=== PATIENT | female | born 1935 | race Caucasian/White ===

== ENCOUNTER → 2017-10-29 10:36 | Outpatient (CLI) | payer MEDICARE, OTHER, SELFPAY ==
--- NOTE | 2017-10-29 | DI.ECHO.S_ITS ---
[place] +---------+ [facility] +---------+ : : [address] : : : : [id number] : : : : Phone: [phone]+ Echocardiogram Report + + :Name: KYLE GALVAN Study Date: 10/29/2017 Height: 61 in : :[facility] Weight: 169 lb : : Gender: Female BSA: 1.8 m2 : :: 1935 Age: 82 yrs BP: 100/60 mmHg: :Reason For Study: Atrial fibrillation : :Ordering Physician: Vitor Espinosa : :[place] Performed By: Sue Mcege : :Referring: Dr. Salvatore Ornelas : + + Interpretation Summary 1) Normal left ventricular thickness and size with low normal function (EF 50- 55%). 2) Basal to mid inferior wall is akinetic, basal inferolateral wall is hypokinetic, and basal to mid anterolateral wall is hypokinetic. 3) Grossly normal right ventricular size and function. There is a pacemaker lead in the right ventricle. 4) The left atrium is severely dilated. 5) There is mild to moderate mitral regurgitation. 6) There is mild aortic stenosis. There is mild to moderate aortic regurgitation. 7) The right ventricular systolic pressure is estimated at 37 mmHg assuming a right atrial pressure of 3 mm Hg. 8) No prior TTE available for comparison. Procedure: A two-dimensional transthoracic echocardiogram with color flow and Doppler was performed. The study quality was technically adequate. Comparison is made with the echocardiogram of 10-27-12. The patient has a paced rhythm. Left Ventricle: The left ventricle is normal in size. There is normal left ventricular wall thickness. The ejection fraction is estimated to be 50-55%. Basal to mid inferior wall is akinetic, basal inferolateral wall is hypokinetic, and basal to mid anterolateral wall is hypokinetic. Diastolic function could not be accurately assessed due to paced rhythm. Right Ventricle: The right ventricle grossly appears normal in size with probable normal systolic function. There is a pacemaker lead in the right ventricle. Atria: The left atrium is severely dilated. The right atrium is mildly dilated. The interatrial septum is intact with no evidence for an atrial septal defect. Mitral Valve: The mitral valve is grossly normal. There is mild to moderate mitral regurgitation. Aortic Valve: The aortic valve is trileaflet. The calculated aortic valve area is 1.4 cm2. The aortic valve area is 1.5 centimeters squared by planimetry. The peak aortic velocity is 2.1 m/sec. The aortic valve mean gradient is 9 mmHg. Severity ratio is 0.43. There is mild aortic stenosis. There is mild to moderate aortic regurgitation. Tricuspid Valve: The tricuspid valve is normal in structure and function. There is mild tricuspid regurgitation. The right ventricular systolic pressure is estimated at 37 mmHg assuming a right atrial pressure of 3 mm Hg. Pulmonic Valve: The pulmonic valve is not well visualized. Great Vessels: The aortic root is normal size. The ascending aorta is mildly enlarged. The aortic arch could not be visualized. The IVC is of normal diameter and collapses greater than 50% with a sniff. This suggests a low right atrial pressure of 3 mm Hg. Pericardium/ Pleura There is no pericardial effusion. There is no pleural effusion. MMode/2D Measurements & Calculations LVIDd: 5.3 cm LVOT diam: 2.1 cm LVIDs: 3.6 cm Ao root diam: 3.6 cm FS: 31.7 % Aortic Jxn: 3.0 cm EPSS: 1.6 cm asc Aorta Diam: 3.8 cm IVSd: 1.0 cm LVPWd: 0.93 cm LV medley. diameter/BSA (cm/m^2): 3.0 LV sys. diameter/BSA (cm/m^2): 2.1 LA dimension: 5.5 cm RA long axis: 6.4 cm LA A2 area: 36.4 cm2 RA area: 22.7 cm2 LA A4 area: 33.8 cm2 RA vol: 68.2 ml LA length (vol): 6.7 cm RA : 38.8 ml/m2 LA vol: 155.1 ml IVC diam: 2.0 cm LA vol index: 88.2 ml/m2 RVDd major: 4.9 cm RVD1 (basal): 3.5 cm RVD2 (mid): 2.6 cm NICOLE (plan): 1.5 cm2 Doppler Measurements & Calculations Ao V2 max: 208.2 cm/sec LVOT Max Shaka: 83.0 cm/sec Ao V2 mean: 141.2 cm/sec LV V1 max P.8 mmHg Ao max P.3 mmHg LV V1 VTI: 19.6 cm Ao mean P.9 mmHg NICOLE(I,D): 1.5 cm2 Ao V2 VTI: 45.4 cm NICOLE(V,D): 1.4 cm2 sev ratio: 0.43 NICOLE indexed to BSA (cm^2/m^2): 0.84 AI P1/2t: 551.0 msec AI dec slope: 209.8 cm/sec2 MV E max shaka: 96.9 cm/sec TR max shaka: 289.9 cm/sec MV A max shaka: 35.3 cm/sec TR max P.6 mmHg MV E/A: 2.7 PA V2 max: 83.9 cm/sec Med Peak E' Shaka: 7.7 cm/sec PA V2 mean: 46.6 cm/sec E/E' med: 12.6 PA mean P.1 mmHg Lat Peak E' Shaka: 6.8 cm/sec PA Accel Time: 0.09 sec E/E' lat: 14.2 E/e' average: 13.4 MV dec time: 0.16 sec MV P1/2t: 47.0 msec MR ERO: 0.22 cm2 MV P1/2t max shaka: 100.0 cm/sec MR flow rate: 120.9 cm3/sec MVA(P1/2t): 4.7 cm2 MR PISA radius: 0.71 cm Reading Physician:12:22 PM
== END ==
PROVIDERS: Family Provider Family Medicine; PCP Internal Medicine; Visit Provider Internal Medicine Cardiovascular Disease
DX: I08.3 Combined rheumatic disorders of mitral, aortic and tricuspid valves (principal); I48.91 Unspecified atrial fibrillation
CPT/HCPCS: 93306

== ENCOUNTER → 2017-11-13 14:30 | Outpatient (CLI) | payer MEDICARE, OTHER, SELFPAY ==
[2017-11-13 17:03] LABS: Add Manual Diff / Slide Review NO; Basophils Percent Auto 0.6 % (0-2); Eosinophils Percent Auto 2.6 % (2-4); Hematocrit 42.3 % (36-46); Hemoglobin 14.2 g/dL (12.0-16.0); Mean Corpuscular HGB Conc 33.5 % (30-36); Mean Corpuscular Hemoglobin 32.1 PG (26-34); Mean Corpuscular Volume 95.9 fL (80-100); Monocytes Percent Auto 13.7 % (3-14); Neutrophils Absolute Auto 3600 /uL (3000-5900); Neutrophils Percent Auto 51.1 % (50-75); Platelet Count 223 X10^3/uL (150-400); Red Blood Cell Count 4.42 X10^6/uL (4.0-5.2); Red Cell Distribution Width 13.8 % (11.6-14.8)
[2017-11-13 17:21] LABS: Alanine Aminotransferase 28 IU/L (9-52); Albumin 4.1 g/dL (3.5-5.0); Albumin Globulin Ratio 1.3 (1.0-2.8); Alkaline Phosphatase 61 U/L (38-126); Aspartate Aminotransferase 30 IU/L (14-36); BUN Creatinine Ratio 18.6 (6-22); Bilirubin Total 0.6 mg/dL (0.2-1.3); Blood Urea Nitrogen 13 mg/dL (7-17); Calcium 9.2 mg/dL (8.4-10.2); Carbon Dioxide 28 mmol/L (22-32); Chloride 104 mmol/L (98-107); Creatine Kinase 43 U/L (30-135); Estimated Glomerular Filt Rate > 60.0 mL/min (>60); Globulin 3.1 g/dL (1.7-4.1); Glucose 97 mg/dL (80-110); HEMOLYSIS 20 (0-50); Potassium 4.2 mmol/L (3.4-5.1); Sodium 142 mmol/L (137-145); Total Protein 7.2 g/dL (6.3-8.2)
[2017-11-13 17:36] LABS: Free T4, Direct Thyroxine 1.92 ng/dL (0.78-2.19)
[2017-11-13 17:50] LABS: Thyroid Stimulating Hormone 0.42 uIU/mL (0.47-4.68)
== END ==
PROVIDERS: PCP Internal Medicine; Visit Provider Internal Medicine
DX: E78.00 Pure hypercholesterolemia, unspecified (principal); G47.62 Sleep related leg cramps; I25.10 Atherosclerotic heart disease of native coronary artery without angina pectoris; I10 Essential (primary) hypertension; E03.9 Hypothyroidism, unspecified; E78.5 Hyperlipidemia, unspecified; I48.2 Chronic atrial fibrillation
CPT/HCPCS: 80053; 82550; 83735; 84439; 84443; 85025

== ENCOUNTER → 2018-01-26 13:05 | Outpatient (CLI) | payer MEDICARE, OTHER, SELFPAY ==
[2018-01-26 14:58] LABS: TSH w/ Reflex to FT4 1.16 uIU/mL (0.47-4.68)
== END ==
PROVIDERS: PCP Internal Medicine; Visit Provider Internal Medicine
DX: E03.9 Hypothyroidism, unspecified (principal)
CPT/HCPCS: 36415; 84443

== ENCOUNTER → 2018-03-12 08:59 | Outpatient (CLI) | payer MEDICARE, OTHER, SELFPAY ==
[2018-03-12 10:19] LABS: Free T4, Direct Thyroxine 1.26 ng/dL (0.78-2.19)
[2018-03-12 10:32] LABS: Thyroid Stimulating Hormone 2.44 uIU/mL (0.47-4.68)
[2018-03-15 09:52] LABS: Alanine Aminotransferase 31 IU/L (9-52); Albumin 4.2 g/dL (3.5-5.0); Albumin Globulin Ratio 1.5 (1.0-2.8); Alkaline Phosphatase 64 U/L (38-126); Aspartate Aminotransferase 28 IU/L (14-36); Bilirubin Total 0.7 mg/dL (0.2-1.3); Blood Urea Nitrogen 20 mg/dL (7-17); Calcium 9.8 mg/dL (8.4-10.2); Carbon Dioxide 26 mmol/L (22-32); Chloride 102 mmol/L (98-107); Estimated Glomerular Filt Rate > 60.0 mL/min (>60); Globulin 2.8 g/dL (1.7-4.1); Glucose 103 mg/dL (80-110); HEMOLYSIS < 15 (0-50); Potassium 5.2 mmol/L (3.4-5.1); Sodium 138 mmol/L (137-145)
== END ==
PROVIDERS: Internal Medicine Cardiovascular Disease; PCP Internal Medicine; Visit Provider Internal Medicine
DX: E03.9 Hypothyroidism, unspecified (principal)
CPT/HCPCS: 36415; 80053; 84439; 84443

== ENCOUNTER → 2018-03-18 11:13 | Outpatient (CLI) | payer MEDICARE, OTHER, SELFPAY ==
[2018-03-18 12:27] LABS: BUN Creatinine Ratio 23.8 (6-22); Blood Urea Nitrogen 19 mg/dL (7-17); Calcium 9.6 mg/dL (8.4-10.2); Carbon Dioxide 27 mmol/L (22-32); Chloride 102 mmol/L (98-107); Estimated Glomerular Filt Rate > 60.0 mL/min (>60); Glucose 94 mg/dL (80-110); HEMOLYSIS < 15 (0-50); Potassium 5.1 mmol/L (3.4-5.1); Sodium 138 mmol/L (137-145)
== END ==
PROVIDERS: PCP Internal Medicine; Visit Provider Internal Medicine Cardiovascular Disease
DX: I48.2 Chronic atrial fibrillation (principal)
CPT/HCPCS: 36415; 80048

== ENCOUNTER → 2018-07-19 14:16 | Outpatient (CLI) | payer MEDICARE, OTHER, SELFPAY ==
--- NOTE | 2018-07-19 14:32 | DI.RAD.S_ITS ---
PROCEDURE: XR CERVICAL SPINE 4V OR 5V INDICATIONS: chronic neck pain TECHNIQUE: 5 views of the cervical spine acquired. COMPARISON: [facility], , SPINE CERVICAL MIN 4VW, 01/09/2016, 10:05. [facility], [place], CERVICAL SPINE 2 OR 3 VIEWS, 07/05/2012, 16:57. FINDINGS: Bones: No fractures or dislocations to the T1 level. Oblique images demonstrate significant bilateral mid cervical bony foraminal stenoses related to severe degenerative disc disease from C3-C6. On the right the foraminal stenosis is most pronounced at C3-4 and C4-5. On the left is most pronounced from C3-4 through C6-7. Soft tissues: No prevertebral soft tissue swelling. 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 This has not appreciably worsened considering slight differences in technique from the comparison study in January of 2016. Dictated by: Jono Marie M.D. on 07/19/2018 at 15:16 Approved by: Jono Marie M.D. on 07/19/2018 at 15:18
--- NOTE | 2018-07-19 14:32 | DI.RAD.S_ITS ---
PROCEDURE: XR LUMBAR SPINE MIN 4V INDICATIONS: chronic back pain TECHNIQUE: 5 views of the lumbar spine were acquired, including both obliques. COMPARISON: [facility], , L-SPINE 2-3 VIEWS, 11/16/2015, 14:37. [facility], [place], L-SPINE 2-3 VIEWS, 01/18/2013, 11:09. FINDINGS: Bones: 5 nonrib-bearing vertebrae are present. There is stable appearing mildly abnormal bony alignment, with convex rightward scoliosis centered at L2.. No vertebral body compression fractures. No suspicious bony lesions. Previously present moderate degenerative disc disease and moderately severe facet osteoarthritis along the lumbosacral spine has not worsened. Soft tissues: Overlying bowel gas pattern is normal. No suspicious soft tissue calcifications. Oblique images: No pars defects. IMPRESSION: Mild convex rightward scoliosis, stable appearing moderate degenerative disc disease and moderately severe bilateral facet osteoarthritis along the lumbosacral spine with reference to the comparison study from January 2013. Dictated by: Jono Marie M.D. on 07/19/2018 at 15:12 Approved by: Jono Marie M.D. on 07/19/2018 at 15:14
--- NOTE | 2018-07-19 14:32 | DI.RAD.S_ITS ---
PROCEDURE: XR SHOULDER RT MIN 2V INDICATIONS: pain TECHNIQUE: 3 views of the shoulder were acquired. COMPARISON: None. FINDINGS: Bones: No fractures or dislocations. No suspicious bony lesions. Visualized ribs appear intact. Moderately severe a.c. joint osteoarthritis. Soft tissues: No suspicious soft tissue calcifications. IMPRESSION: No trauma found. Moderately severe a.c. joint osteoarthritis. Dictated by: Jono Marie M.D. on 07/19/2018 at 15:11 Approved by: Jono Marie M.D. on 07/19/2018 at 15:12
== END ==
PROVIDERS: Family Provider Family Medicine; PCP Internal Medicine; Visit Provider Physical Medicine & Rehabilitation
DX: M50.11 Cervical disc disorder with radiculopathy, high cervical region (principal); M48.02 Spinal stenosis, cervical region; M47.22 Other spondylosis with radiculopathy, cervical region; M25.511 Pain in right shoulder; M19.011 Primary osteoarthritis, right shoulder; M51.37 Other intervertebral disc degeneration, lumbosacral region; M47.817 Spondylosis without myelopathy or radiculopathy, lumbosacral region; M41.86 Other forms of scoliosis, lumbar region; G89.29 Other chronic pain
CPT/HCPCS: 72050; 72110; 73030; 99214

== ENCOUNTER → 2018-07-22 09:51 | Outpatient (CLI) | payer MEDICARE, OTHER, SELFPAY ==
--- NOTE | 2018-07-22 10:22 | DI.CT.S_ITS ---
PROCEDURE: CT CERVICAL SPINE WO CON INDICATIONS: lower neck pains TECHNIQUE: Noncontrast 3 mm thick sections acquired from the skull base to the T4 level. Sagittal and coronal reformats were then constructed. For radiation dose reduction, the following was used: automated exposure control, adjustment of mA and/or kV according to patient size. COMPARISON: None. FINDINGS: Image quality: Excellent. Bones: No fractures. Trace, approximately 2-3 mm of C3-C4 anterolisthesis. There is mild reversal of normal cervical spine curvature. Visualized superior ribs are intact. C2-C3: Disc height is normal. Mild, diffuse disc bulge. Mild bilateral facet hypertrophy. No central stenosis. No neural foraminal narrowing. No neural impingement. C3-C4: Loss of disc height. Mild, diffuse disc bulge. Moderate bilateral facet hypertrophy. Mild narrowing of the central canal. Severe bilateral neural foraminal narrowing with compression of the exiting C4 nerve roots. C4-C5: Loss of disc height. Minimal, diffuse disc bulge. Mild bilateral facet hypertrophy. Mild bilateral uncovertebral joint hypertrophy. No central stenosis Severe bilateral neural foraminal narrowing with compression of the exiting C5 nerve roots. C5-C6: Loss of disc height. Mild, diffuse disc bulge. Mild left facet and uncovertebral joint hypertrophy. Mild narrowing of the central canal. Mild right and severe left neural foraminal narrowing with compression of the exiting left C6 nerve root. C6-C7: Loss of disc height. Mild, diffuse disc bulge. Mild bilateral uncovertebral joint hypertrophy. Mild narrowing of the central canal. Moderate right and severe left neural foraminal narrowing with compression of the exiting left C7 nerve root. C7-T1: Loss of disc height. Minimal, diffuse disc bulge. Mild bilateral facet hypertrophy. No central stenosis. Moderate bilateral neural foraminal narrowing. No neural impingement. Soft tissues: Prevertebral soft tissues are normal in thickness. No paravertebral hematomas. No apical pneumothoraces. IMPRESSION: 1. Mild C3-C4 degenerative spondylolisthesis. 2. Multilevel degenerative disease. 3. Multilevel facet arthropathy and uncovertebral joint hypertrophy. 4. Mild C3-C4, C5-C6 and C6 on C7 central canal narrowing. 5. Severe bilateral C3-C4 and C4-C5 neuroforaminal narrowing. Moderate right and severe left C6-C7 neural foraminal narrowing. Mild right and severe left C5-C6 neural foraminal narrowing. Moderate bilateral C7-T1 neural foraminal narrowing. 6. Compression of the exiting bilateral C4 nerve roots, the exiting bilateral C5 nerve roots, the exiting left C6 nerve root and the exiting left C7 nerve root secondary to neural foraminal narrowing. Please correlate clinically. Dictated by: Alice Pierce MD, PhD on 07/22/2018 at 11:45 Approved by: Alice Pierce MD, PhD on 07/22/2018 at 13:38
--- NOTE | 2018-07-22 10:22 | DI.CT.S_ITS ---
PROCEDURE: CT LUMBAR SPINE WO CON INDICATIONS: LOWER BACK PAIN WITH BILATERAL SCIATICA TECHNIQUE: Noncontrast 3 mm thick sections acquired from the T12 level to the sacrum. Sagittal and coronal reformats were constructed. For radiation dose reduction, the following was used: automated exposure control. COMPARISON: [facility], CT, L-SPINE WITHOUT CONTRAST, 01/04/2016, 8:44. FINDINGS: Image quality: Excellent. Bones: There is trace retrolisthesis of L1 on L2, L3 on L4, trace anterolisthesis of L4 on L5, L5 on S1. No acute vertebral body compression fractures. No suspicious lytic or blastic bony lesions. Mild disc bulges are present at L1-L2, L2-L3, L3-4, L4-5 including a right lateral disc osteophyte complex, L5-S1. There is moderate to severe spinal stenosis at L2-3, severe L3-4, L4-5. There is flattening of the canal identified at L3-4 and L4-5. Appearance is overall unchanged compared to prior exam. Mild bilateral foraminal narrowing is present at L1-L2, mild left and moderate right L2-L3, moderate to severe right and mild left L3-4, severe right and mild left L4-5, severe left and mild to moderate right L5-S1. Nerve root flattening is noted on the right at L3-4, L4-5 and left L5-S1. Multilevel facet and ligamentum flavum hypertrophy are present. Minimal interval progression of foraminal narrowing is noted at L4-5 and L5-S1. Soft tissues: No retroperitoneal hematomas. Visualized aorta is normal in caliber. There is an unchanged right adrenal nodule. IMPRESSION: 1. Multilevel spinal stenosis secondary to disc bulges with contributing effect of facet/ligamentum flavum arthropathy. This is most notable at L3-4 and L4-5. 2. Multilevel foraminal narrowing most severe at L3-4, L4-5 and L5-S1 with areas of nerve root flattening. Mild interval progression is noted as above. Foraminal narrowing is predominantly secondary to facet arthropathy. 3. Unchanged right adrenal nodule. Dictated by: Renetta Pugh M.D. on 07/22/2018 at 15:56 Approved by: Renetta Pugh M.D. on 07/22/2018 at 16:13
== END ==
PROVIDERS: PCP Internal Medicine; Visit Provider Physical Medicine & Rehabilitation
DX: M54.5 Low back pain (principal); M50.11 Cervical disc disorder with radiculopathy, high cervical region; M48.02 Spinal stenosis, cervical region; M47.22 Other spondylosis with radiculopathy, cervical region; M43.12 Spondylolisthesis, cervical region; M48.061 Spinal stenosis, lumbar region without neurogenic claudication; M48.07 Spinal stenosis, lumbosacral region; M47.816 Spondylosis without myelopathy or radiculopathy, lumbar region; M47.817 Spondylosis without myelopathy or radiculopathy, lumbosacral region; E27.9 Disorder of adrenal gland, unspecified
CPT/HCPCS: 72125; 72131

== ENCOUNTER → 2018-07-23 09:11 | Outpatient (CLI) | payer MEDICARE, OTHER, SELFPAY ==
[2018-07-23 11:03] LABS: Cholesterol 166 mg/dL (140-199); HDL Cholesterol 74 mg/dL (40-60); LDL Cholesterol Calculated 77 mg/dL (<100); Triglycerides 77 mg/dL (35-150)
== END ==
PROVIDERS: Family Provider Internal Medicine; PCP Internal Medicine; Visit Provider Internal Medicine Cardiovascular Disease
DX: E78.5 Hyperlipidemia, unspecified (principal)
CPT/HCPCS: 36415; 80061

== ENCOUNTER 2018-10-01 13:45 | Outpatient (RCR) | payer MEDICARE, OTHER, SELFPAY ==
--- NOTE | 2018-08-25 12:33 | PT.OIE ---
Current Diagnoses Other spondylosis with radiculopathy, cervical region (08/24/18) Spinal stenosis, cervical region (08/24/18) Past Medical History (Last Reviewed 07/19/18 @ 14:05 by Marc Holt DO) Chronic atrial fibrillation (Chronic 1995) Hypothyroidism (Chronic 04/23/12) GERD (gastroesophageal reflux disease) (Chronic 10/18/10) CAD (coronary artery disease) (Chronic 1993) Sleep apnea (Chronic) Osteoarthritis (Chronic 1979) Chronic headaches (Chronic 1947) Tinnitus (Chronic 2004) Chronic back pain (Chronic) Other and unspecified hyperlipidemia (Chronic 10/18/10) custodial current use of anticoagulant (Chronic 07/28/12) Urinary incontinence (Chronic 08/22/14) Hot flashes due to menopause (Chronic 08/22/14) Presence of cardiac pacemaker (Chronic 2015) Status post atrioventricular carlos ablation (Inactive 04/01/17) Stress incontinence in female (Chronic 04/01/17) Abnormal Pap smear of cervix (Resolved) Chicken pox (Resolved 1944) Glaucoma (Resolved 2012) Measles (Resolved 1941) Migraines (Resolved 1964) Mumps (Resolved 1963) Myocardial infarction (Resolved 1993) Recurrent sinusitis (Resolved 1984) TIA (transient ischemic attack) (Resolved 2011) Past Surgical History (Last Reviewed 07/19/18 @ 14:05 by Marc Holt DO) Anesthesia (Resolved) History of cardiac radiofrequency ablation (RFA) (Resolved 2012) History of orthopedic surgery (Resolved 1953) Presence of cardiac pacemaker (Resolved 2015) 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 2011) Status post appendectomy (Resolved) Status post arthroscopy (Resolved) Status post knee surgery (Resolved 2014) Status post rotator cuff repair (Resolved 1999) Status post vaginal hysterectomy (Resolved 1969) Provider Visit Care Team Role Provider Type Salvatore Ornelas MD Family Provider Physician Primary Care Provider Specialty: Internal Medicine Address: [address] [place] [address], [id number] Email: [email or web address] Mrac Holt DO Attending Provider Physician Specialty: Physiatry Pain Management Address: [address] [place] [address], [id number] Email: Physical Therapy Initial Evaluation PT-OP-A Visit Information Start: 08/25/18 08:01 Freq: Status: Active Protocol: Document 08/24/18 16:00 (Rec: 08/25/18 08:26 [id number]) Out-Patient Physical Therapy Visit Information Visit Information Visit Type Initial Evaluation Visit Start Time 16:00 Visit Stop Time 16:45 Total Visit Minutes 45 Visit Number 1 Number of WAREHOUSE RECEIVING CLERK Visits 0 Evaluation Information Evaluation Date 08/25/18 Precautions Precautions Pacemaker bruise easily PT-OP-B Current Condition Start: 08/25/18 08:01 Freq: Status: Active Protocol: Document 08/24/18 16:00 HH (Rec: 08/25/18 08:26 [id number]) Current Condition History of Current Condition Onset Date both [employer] and 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 Pt reports her constant LBP R >L started getting worse a year ago after moving some furniture from main floor to second floor by using the stairs. She felt like her back is very weak and limits her from bending over for a long period of time such as washing dishes, pushing grocery cart, car transfers and prolonged standing/ sitting. She also has to take half of a hydrocodone 325mg sometimes if pain gets very severe. However, she tends to feel better by moving around and walking. In addition, Pt also c/o intermittent neck pain that starts from right shoulder blades and radiates to her neck, along with constant headache. She states her [employer] tends to get aggravated every couple weeks for a few days but subside after. Explained doing UE and upperbody exercises from her strength and balance class in [facility] seem to aggravate her symptoms. However, she said her neck pain doesnt bother her as much as LBP at this point. Prior Treatments and Tests Pt had PT for LBP and hip pain with successful outcome. Treatment Goals Patient/Caregiver Goals 1. to minimize pain during car transfers, dish washing, and grocery shopping 2. To be able to self manage her pain through understanding movement pattern and participating HEP 3. increase activity tolerance . Prior Functional Status Baseline Function- ADL's Independent Baseline Function- Mobility Independent Current Functional Impairments (Reported) Functional Limitations- Recreation/ c/o [employer] and LBP after upper Hobbies body workout increased pain during functional activities : bending over for dish washing, car transfer and grocery shopping Personal Factors Other Personal Factors That May Effect constant headache Therapy/Recovery pacemaker PT-OP-C Subjective Start: 08/25/18 08:01 Freq: Status: Active Protocol: Document 08/24/18 16:00 HH (Rec: 08/25/18 08:26 HH [id number]) OP-PT Subjective Patient Comments Patient Comments My back pain is daily but neck pain is intermittent Patient Questionnaires Neck Disability Index NDI Score 18 Neck Disability Index Impairment 20 to 39% Impaired (Score 10- 19) OP-PT Pain Assessment Location neck pain Pain Location Details from medial border of R scapular to cervical region Intensity 4 Scale Used Numeric (1 - 10) Description Aching Dull Frequency Intermittent Pain Aggravating Factors Activity Exercise Pain Alleviating Factors Inactivity low back Pain Location Details low back, R buttock Intensity 5 Scale Used Numeric (1 - 10) Description Aching Dull Frequency Daily Pain Aggravating Factors ADL's Activity Exercise Standing Sitting Lifting Pain Alleviating Factors Inactivity Lying Supine Exercise PT-OP-F Manual Assessment Start: 08/25/18 08:01 Freq: Status: Active Protocol: Document 08/24/18 16:00 HH (Rec: 08/25/18 12:23 [email or web address]) Manual Assessments Soft Tissue Assessment Soft Tissue Mobility Assessment lumbar paraspinals hypertrophy and excessive activation during static standing significant tenderness to pressure along paraspinals from lumbar to cervical R>L, rhomboid and levator scap Joint Mobility Assessment Joint Mobility Assessment limited flexion segmental mobility at lumbar spine and extension mobility of thoracic spine PT-OP-J Posture/Palpation/Skin Start: 08/25/18 08:01 Freq: Status: Active Protocol: Document 08/24/18 16:00 HH (Rec: 08/25/18 12:23 [email or web address]) Posture Evaluation Position Standing Evaluation View Lateral Head/C-Spine Posture Forward Head T-Spine Posture Increased Kyphosis L-Spine Posture Increased Lordosis Shoulder Posture (L) Rounded (R) Rounded Scapula Posture (L) Protracted (R) Protracted Pelvis Posture Anteriorly Tilted PT-OP-K Range of Motion Start: 08/25/18 08:01 Freq: Status: Active Protocol: Document 08/24/18 16:00 HH (Rec: 08/25/18 12:23 [email or web address]) Cervical Spine Range of Motion Cervical Spine Active Degrees Testing Position Sitting Flexion 40 Extension 45 Lateral Flexion Left 25 Lateral Flexion Right 27 Lumbar Spine Range of Motion Lumbar Spine Active Degrees Testing Position Sitting Flexion 17 Extension 15 Lateral Flexion Left 15 Lateral Flexion Right 15 ROM Limitations Pain Comments pinching pain reproduced during lateral flexion R>L PT-OP-L Special Tests Start: 08/25/18 08:01 Freq: Status: Active Protocol: Document 08/24/18 16:00 (Rec: 08/25/18 12:23 [email or web address]) Special Tests Cervical Spine Special Tests Spurling's Test Test Results -ve bilaterally Foraminal Compression Test Results -ve bilaterally Lumbar Spine Special Tests Standing Flexion Comments pt primarily uses hip flexion and thoracic flexion for toe touch facet syndrome test Test Results +ve bilaterally Comments R >L during lateral flexion and lateral flexion with extension Straight Leg Raise Test Results +VE Comments LBP reproduced during SLR but decreased after manual pelvic stabilization PT-OP-M Strength Start: 08/25/18 08:01 Freq: Status: Active Protocol: Document 08/24/18 16:00 (Rec: 08/25/18 12:33 [email or web address]) Cervical Spine Strength Cervical Spine Manual Muscle Testing Testing Position Sitting Flexion (C1-2) 4 Good Extension 4- Good- Rotation Left 4- Good- Rotation Right 4- Good- Lateral Flexion Left (C3) 4- Good- Lateral Flexion Right (C3) 4- Good- Trunk Strength Trunk Manual Muscle Testing Flexion 3+ Fair+ Extension 4- Good- Lateral Flexion Left 3+ Fair+ Lateral Flexion Right 3+ Fair+ PT-OP-Q Treatments Start: 08/25/18 08:01 Freq: Status: Active Protocol: Document 08/24/18 16:00 (Rec: 08/25/18 12:23 [email or web address]) Self-Care/Home Management Treatment Education Patient Education Pain Management Posture Other Education education of posterior pelvic tilt how to flatten lumbar spine PT-OP-T Assessment and Plan Start: 08/25/18 08:01 Freq: Status: Active Protocol: Document 08/24/18 16:00 (Rec: 08/25/18 08:39 [id number]) Physical Therapy Assessment Rehab Potential Rehabilitation Potential Good Evaluation Complexity Number of Personal Factors/Comorbidities 3 or More Number of Body Systems Impaired 3 Clinical Presentation at Evaluation Stable Impairments Impairments Activity Tolerance Functional Activities Functional Mobility Pain Posture ROM Soft Tissue Mobility Strength Goals Strength Impairment presents decreased abdominal and trunk extensor strength Residential Goal (LTG) Pt will increase 1 MMT for both abdominal and trunk extensor muscle strength to improve trunk stability for functional activities such as bending over during dish washing. LTG Duration 12 weeks HEP Impairment pt does not ahve HEP Residential Goal (LTG) Pt will comply to HEP independently with a safe bodymechanics and posture to improve overall awareness of body movements to reduce injury risk LTG Duration 8 weeks ROM Impairment reduced lumbar ROM during static and dynamic movements Disposal Man Goal (LTG) Pt will be able improve overall lumbar ROM by 10 degrees to improve segmental mobility for functional activities such as picking up object from floor LTG Duration 12 weeks NDI Impairment NDI at 18 (20-39% impairment) Residential Goal (LTG) Pt will score below 10 (1-19% impairment) for NDI to improve her quality of life LTG Duration 12 weeks Assessment Summary Assessment Pt is a 83yo female with primary concern of chronic LBP > intermitten [employer]. Upon postural assessment, pt presents significant anterior pelvic tilt with forward head and increased thoracic kyphosis. There's noticeable excessive lumbar paraspinals activation and muscle hypertrophy at static standing and significant decrease in lumbar segmental flexion during toe touch test. Pt tends to perform standing flexion through thoracic spine and hip flexion. Pain also reproduced during facet syndrome test R >L and lateral flexion to R. She also c/o increase of LBP during straight leg raise but it reduces with pelvic stabilization. Significant tenderness to pressure on lumbar paraspinals, thoracic paraspinals and R rhomboids and levator scap are also noted. Pt did not demonstrates significant cervical ROM deficits or reproduction of pain during special tests. Postural education is given regarding abdominal strength and pelvic positoin assoication with LBP. Pt will be a good candidate for skilled therapy for postural hoahaoism, bodymechanical training during functional activities, overall strengthening, flexibility training and pain management. Physical Therapy Plan Frequency and Duration Frequency of Treatment 2x/Week Duration of Treatment 12 weeks Plan of Care Start Date 08/24/18 Plan of Care End Date 11/24/18 Therapeutic Interventions Therapeutic Interventions Aquatic Therapy Balance Training Gait Training Home Exercise Program Joint Mobilizations Manual Therapy Neuromuscular Re-education Patient/Caregiver Education Self-Care/Home Management Soft Tissue Mobilization Taping Therapeutic Activities Therapeutic Exercises Modalities Cold Pack/Ice Massage Electric Stimulation Hot Packs Infrared Therapy Iontophoresis Traction- Mechanical Ultrasound Next Visit Focus/Plan Next Note Type Treatment Note Next Visit Plan fill out low back questionnaire postural education check ankle DF paraspinals relaxation isometric strengthening for extensors as perfecto abdominal strengthening as perfecto segmental flexion training
--- NOTE | 2018-08-25 12:33 | PT.OPPOC ---
Current Diagnoses Other spondylosis with radiculopathy, cervical region (08/24/18) Spinal stenosis, cervical region (08/24/18) Provider Visit Care Team Role Provider Type Salvatore Ornelas MD Family Provider Physician Primary Care Provider Specialty: Internal Medicine Address: [address] [place] [address], [id number] Email: [email or web address] Marc Holt DO Attending Provider Physician Specialty: Physiatry Pain Management Address: [address] [place] [address], [address] Email: Plan Of Care PT-OP-T Assessment and Plan Start: 08/25/18 08:01 Freq: Status: Active Protocol: Document 08/24/18 16:00 (Rec: 08/25/18 08:39 [id number]) Physical Therapy Assessment Rehab Potential Rehabilitation Potential Good Evaluation Complexity Number of Personal Factors/Comorbidities 3 or More Number of Body Systems Impaired 3 Clinical Presentation at Evaluation Stable Impairments Impairments Activity Tolerance Functional Activities Functional Mobility Pain Posture ROM Soft Tissue Mobility Strength Goals Strength Impairment presents decreased abdominal and trunk extensor strength Nursing Home Goal (LTG) Pt will increase 1 MMT for both abdominal and trunk extensor muscle strength to improve trunk stability for functional activities such as bending over during dish washing. LTG Duration 12 weeks HEP Impairment pt does not ahve HEP Splitting Machine Feeder Goal (LTG) Pt will comply to HEP independently with a safe bodymechanics and posture to improve overall awareness of body movements to reduce injury risk LTG Duration 8 weeks ROM Impairment reduced lumbar ROM during static and dynamic movements Nursing Home Goal (LTG) Pt will be able improve overall lumbar ROM by 10 degrees to improve segmental mobility for functional activities such as picking up object from floor LTG Duration 12 weeks NDI Impairment NDI at 18 (20-39% impairment) Splitting Machine Feeder Goal (LTG) Pt will score below 10 (1-19% impairment) for NDI to improve her quality of life LTG Duration 12 weeks Assessment Summary Assessment Pt is a 83yo female with primary concern of chronic LBP > intermitten [employer]CH[employer]. Upon postural assessment, pt presents significant anterior pelvic tilt with forward head and increased thoracic kyphosis. There's noticeable excessive lumbar paraspinals activation and muscle hypertrophy at static standing and significant decrease in lumbar segmental flexion during toe touch test. Pt tends to perform standing flexion through thoracic spine and hip flexion. Pain also reproduced during facet syndrome test R >L and lateral flexion to R. She also c/o increase of LBP during straight leg raise but it reduces with pelvic stabilization. Significant tenderness to pressure on lumbar paraspinals, thoracic paraspinals and R rhomboids and levator scap are also noted. Pt did not demonstrates significant cervical ROM deficits or reproduction of pain during special tests. Postural education is given regarding abdominal strength and pelvic positoin assoication with LBP. Pt will be a good candidate for skilled therapy for postural orthodoxy, bodymechanical training during functional activities, overall strengthening, flexibility training and pain management. Physical Therapy Plan Frequency and Duration Frequency of Treatment 2x/Week Duration of Treatment 12 weeks Plan of Care Start Date 08/24/18 Plan of Care End Date 11/24/18 Therapeutic Interventions Therapeutic Interventions Aquatic Therapy Balance Training Gait Training Home Exercise Program Joint Mobilizations Manual Therapy Neuromuscular Re-education Patient/Caregiver Education Self-Care/Home Management Soft Tissue Mobilization Taping Therapeutic Activities Therapeutic Exercises Modalities Cold Pack/Ice Massage Electric Stimulation Hot Packs Infrared Therapy Iontophoresis Traction- Mechanical Ultrasound Next Visit Focus/Plan Next Note Type Treatment Note Next Visit Plan fill out low back questionnaire postural education check ankle DF paraspinals relaxation isometric strengthening for extensors as perfecto abdominal strengthening as perfecto segmental flexion training Plan of Care Dates Plan of Care Start Date 08/24/18 Plan of Care End Date 11/24/18 Please Sign and Return: I have reviewed this Plan of Care and certify that the skilled therapy services above are required to meet the patient?s needs. Physician Signature Date Printed Name and Credentials Clinical Instructor Signature Printed Name and Credentials
--- NOTE | 2018-08-27 16:28 | PT.OTN ---
Current Diagnoses Other spondylosis with radiculopathy, cervical region (08/27/18) Spinal stenosis, cervical region (08/27/18) Low back pain (08/27/18) Physical Therapy Treatment Note PT-OP-A Visit Information Start: 08/25/18 08:01 Freq: Status: Active Protocol: Document 08/27/18 14:30 HH (Rec: 08/27/18 16:28 HH [email or web address]) Out-Patient Physical Therapy Visit Information Visit Information Visit Type Treatment Note Visit Start Time 14:30 Visit Stop Time 15:15 Total Visit Minutes 45 Visit Number 2 PT-OP-B Current Condition Start: 08/25/18 08:01 Freq: Status: Active Protocol: Document 08/24/18 16:00 HH (Rec: 08/25/18 08:26 HH [email or web address]) Current Condition History of Current Condition Onset Date 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 Pt reports her constant LBP R >L started getting worse a year ago after moving some furniture from main floor to second floor by using the stairs. She felt like her back is very weak and limits her from bending over for a long period of time such as washing dishes, pushing grocery cart, car transfers and prolonged standing/ sitting. She also has to take half of a hydrocodone 325mg sometimes if pain gets very severe. However, she tends to feel better by moving around and walking. In addition, Pt also c/o intermittent neck pain that starts from right shoulder blades and radiates to her neck, along with constant headache. She states her ADMISSION NURSE COORDINATOR tends to get aggravated every couple weeks for a few days but subside after. Explained doing UE and upperbody exercises from her strength and balance class in [facility] seem to aggravate her symptoms. However, she said her neck pain doesnt bother her as much as LBP at this point. Prior Treatments and Tests Pt had PT for LBP and hip pain with successful outcome. Treatment Goals Patient/Caregiver Goals 1. to minimize pain during car transfers, dish washing, and grocery shopping 2. To be able to self manage her pain through understanding movement pattern and participating HEP 3. increase activity tolerance . Prior Functional Status Baseline Function- ADL's Independent Baseline Function- Mobility Independent Current Functional Impairments (Reported) Functional Limitations- Recreation/ c/o ADMISSION NURSE COORDINATOR and LBP after upper Hobbies body workout increased pain during functional activities : bending over for dish washing, car transfer and grocery shopping Personal Factors Other Personal Factors That May Effect constant headache Therapy/Recovery pacemaker PT-OP-C Subjective Start: 08/25/18 08:01 Freq: Status: Active Protocol: Document 08/27/18 14:30 HH (Rec: 08/27/18 16:28 HH [email or web address]) OP-PT Subjective Patient Comments Patient Comments I have been practicing pelvic tilt. PT-OP-F Manual Assessment Start: 08/25/18 08:01 Freq: Status: Active Protocol: Document 08/24/18 16:00 HH (Rec: 08/25/18 12:23 HH [email or web address]) Manual Assessments Soft Tissue Assessment Soft Tissue Mobility Assessment lumbar paraspinals hypertrophy and excessive activation during static standing significant tenderness to pressure along paraspinals from lumbar to cervical R>L, rhomboid and levator scap Joint Mobility Assessment Joint Mobility Assessment limited flexion segmental mobility at lumbar spine and extension mobility of thoracic spine PT-OP-J Posture/Palpation/Skin Start: 08/25/18 08:01 Freq: Status: Active Protocol: Document 08/24/18 16:00 HH (Rec: 08/25/18 12:23 HH [email or web address]) Posture Evaluation Position Standing Evaluation View Lateral Head/C-Spine Posture Forward Head T-Spine Posture Increased Kyphosis L-Spine Posture Increased Lordosis Shoulder Posture (L) Rounded (R) Rounded Scapula Posture (L) Protracted (R) Protracted Pelvis Posture Anteriorly Tilted PT-OP-K Range of Motion Start: 08/25/18 08:01 Freq: Status: Active Protocol: Document 08/24/18 16:00 HH (Rec: 08/25/18 12:23 HH [email or web address]) Cervical Spine Range of Motion Cervical Spine Active Degrees Testing Position Sitting Flexion 40 Extension 45 Lateral Flexion Left 25 Lateral Flexion Right 27 Lumbar Spine Range of Motion Lumbar Spine Active Degrees Testing Position Sitting Flexion 17 Extension 15 Lateral Flexion Left 15 Lateral Flexion Right 15 ROM Limitations Pain Comments pinching pain reproduced during lateral flexion R>L PT-OP-L Special Tests Start: 08/25/18 08:01 Freq: Status: Active Protocol: Document 08/24/18 16:00 HH (Rec: 08/25/18 12:23 [email or web address]) Special Tests Cervical Spine Special Tests Spurling's Test Test Results -ve bilaterally Foraminal Compression Test Results -ve bilaterally Lumbar Spine Special Tests Standing Flexion Comments pt primarily uses hip flexion and thoracic flexion for toe touch facet syndrome test Test Results +ve bilaterally Comments R >L during lateral flexion and lateral flexion with extension Straight Leg Raise Test Results +VE Comments LBP reproduced during SLR but decreased after manual pelvic stabilization PT-OP-M Strength Start: 08/25/18 08:01 Freq: Status: Active Protocol: Document 08/24/18 16:00 HH (Rec: 08/25/18 12:33 [email or web address]) Cervical Spine Strength Cervical Spine Manual Muscle Testing Testing Position Sitting Flexion (C1-2) 4 Good Extension 4- Good- Rotation Left 4- Good- Rotation Right 4- Good- Lateral Flexion Left (C3) 4- Good- Lateral Flexion Right (C3) 4- Good- Trunk Strength Trunk Manual Muscle Testing Flexion 3+ Fair+ Extension 4- Good- Lateral Flexion Left 3+ Fair+ Lateral Flexion Right 3+ Fair+ PT-OP-Q Treatments Start: 08/25/18 08:01 Freq: Status: Active Protocol: Document 08/27/18 14:30 HH (Rec: 08/27/18 16:28 [email or web address]) Therapeutic Exercises Supine Exercises supine knee to hip Side bilateral Reps/Minutes 10 x 2 Comments cues on neutral spine supine march Side bilateral Reps/Minutes 10 x2 Comments cues on neutral spine Sitting Exercises doorway stretch Sitting Exercise Name lateral flexion to L Side right Reps/Minutes 5 mins table slide Sitting Exercise Name with knee extended Side bilateral Equipment Used towel on table Reps/Minutes 5 mins Comments forward and diagonal direction Standing Exercises PPT Side bilateral Reps/Minutes 10 x 2 Manual Therapy Treatment Soft Tissue Mobilization lumbar paraspinals Mobilization Type Cross-Friction Sustained Pressure Trigger Point Release Intensity/Depth Moderate Body Position Sidelying Comments tenderness noticead at SI joint area PT-OP-T Assessment and Plan Start: 08/25/18 08:01 Freq: Status: Active Protocol: Document 08/27/18 14:30 HH (Rec: 08/27/18 16:28 [email or web address]) Physical Therapy Assessment Goals Strength Impairment presents decreased abdominal and trunk extensor strength Longterm Goal (LTG) Pt will increase 1 MMT for both abdominal and trunk extensor muscle strength to improve trunk stability for functional activities such as bending over during dish washing. LTG Duration 12 weeks HEP Impairment pt does not ahve HEP Longterm Goal (LTG) Pt will comply to HEP independently with a safe bodymechanics and posture to improve overall awareness of body movements to reduce injury risk LTG Duration 8 weeks ROM Impairment reduced lumbar ROM during static and dynamic movements Professional Wrestler Goal (LTG) Pt will be able improve overall lumbar ROM by 10 degrees to improve segmental mobility for functional activities such as picking up object from floor LTG Duration 12 weeks NDI Impairment NDI at 18 (20-39% impairment) Longterm Goal (LTG) Pt will score below 10 (1-19% impairment) for NDI to improve her quality of life LTG Duration 12 weeks Assessment Summary Assessment There's noticeable muscle spasm and muscular tension to touch/ pressure at R SI joint area. Tx focused on STM on paraspinals and gluteal muscles, abdominal strengthening, and postural education. Pt was able to perform abdominal ex without back pain today. (cues on neutral spine) Physical Therapy Plan Next Visit Focus/Plan Next Note Type Treatment Note Next Visit Plan fill out low back questionnaire postural education paraspinals relaxation isometric strengthening for extensors as perfecto abdominal strengthening and posterior chain as perfecto segmental flexion training
--- NOTE | 2018-09-08 16:04 | PT.OTN ---
Current Diagnoses Other spondylosis with radiculopathy, cervical region (09/08/18) Spinal stenosis, cervical region (09/08/18) Low back pain (09/08/18) Physical Therapy Treatment Note PT-OP-A Visit Information Start: 08/25/18 08:01 Freq: Status: Active Protocol: Document 09/08/18 14:30 GGD (Rec: 09/08/18 16:04 GGD [email or web address]) Out-Patient Physical Therapy Visit Information Visit Information Visit Type Treatment Note Visit Start Time 14:30 Visit Stop Time 15:15 Total Visit Minutes 45 Visit Number 3 Number of CUSTOMER ACQUISITION SPECIALIST Visits 1 Evaluation Information Evaluation Date 08/25/18 PT-OP-B Current Condition Start: 08/25/18 08:01 Freq: Status: Active Protocol: Document 08/24/18 16:00 HH (Rec: 08/25/18 08:26 HH [id number]) Current Condition History of Current Condition Onset 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 Pt reports her constant LBP R >L started getting worse a year ago after moving some furniture from main floor to second floor by using the stairs. She felt like her back is very weak and limits her from bending over for a long period of time such as washing dishes, pushing grocery cart, car transfers and prolonged standing/ sitting. She also has to take half of a hydrocodone 325mg sometimes if pain gets very severe. However, she tends to feel better by moving around and walking. In addition, Pt also c/o intermittent neck pain that starts from right shoulder blades and radiates to her neck, along with constant headache. She states her PRINTMAKER tends to get aggravated every couple weeks for a few days but subside after. Explained doing UE and upperbody exercises [facility] seem to aggravate her symptoms. However, she said her neck pain doesnt bother her as much as LBP at this point. Prior Treatments and Tests Pt had PT for LBP and hip pain with successful outcome. Treatment Goals Patient/Caregiver Goals 1. to minimize pain during car transfers, dish washing, and grocery shopping 2. To be able to self manage her pain through understanding movement pattern and participating HEP 3. increase activity tolerance . Prior Functional Status Baseline Function- ADL's Independent Baseline Function- Mobility Independent Current Functional Impairments (Reported) Functional Limitations- Recreation/ c/o PRINTMAKER and LBP after upper Hobbies body workout increased pain during functional activities : bending over for dish washing, car transfer and grocery shopping Personal Factors Other Personal Factors That May Effect constant headache Therapy/Recovery pacemaker PT-OP-C Subjective Start: 08/25/18 08:01 Freq: Status: Active Protocol: Document 09/08/18 14:30 GGD (Rec: 09/08/18 16:04 GGD [email or web address]) OP-PT Subjective Patient Comments Patient Comments Pt states she felt better after last visit for a few hours. PT-OP-F Manual Assessment Start: 08/25/18 08:01 Freq: Status: Active Protocol: Document 08/24/18 16:00 HH (Rec: 08/25/18 12:23 HH [email or web address]) Manual Assessments Soft Tissue Assessment Soft Tissue Mobility Assessment lumbar paraspinals hypertrophy and excessive activation during static standing significant tenderness to pressure along paraspinals from lumbar to cervical R>L, rhomboid and levator scap Joint Mobility Assessment Joint Mobility Assessment limited flexion segmental mobility at lumbar spine and extension mobility of thoracic spine PT-OP-J Posture/Palpation/Skin Start: 08/25/18 08:01 Freq: Status: Active Protocol: Document 08/24/18 16:00 HH (Rec: 08/25/18 12:23 HH [email or web address]) Posture Evaluation Position Standing Evaluation View Lateral Head/C-Spine Posture Forward Head T-Spine Posture Increased Kyphosis L-Spine Posture Increased Lordosis Shoulder Posture (L) Rounded (R) Rounded Scapula Posture (L) Protracted (R) Protracted Pelvis Posture Anteriorly Tilted PT-OP-K Range of Motion Start: 08/25/18 08:01 Freq: Status: Active Protocol: Document 08/24/18 16:00 HH (Rec: 08/25/18 12:23 HH [email or web address]) Cervical Spine Range of Motion Cervical Spine Active Degrees Testing Position Sitting Flexion 40 Extension 45 Lateral Flexion Left 25 Lateral Flexion Right 27 Lumbar Spine Range of Motion Lumbar Spine Active Degrees Testing Position Sitting Flexion 17 Extension 15 Lateral Flexion Left 15 Lateral Flexion Right 15 ROM Limitations Pain Comments pinching pain reproduced during lateral flexion R>L PT-OP-L Special Tests Start: 08/25/18 08:01 Freq: Status: Active Protocol: Document 08/24/18 16:00 HH (Rec: 08/25/18 12:23 HH [email or web address]) Special Tests Cervical Spine Special Tests Spurling's Test Test Results -ve bilaterally Foraminal Compression Test Results -ve bilaterally Lumbar Spine Special Tests Standing Flexion Comments pt primarily uses hip flexion and thoracic flexion for toe touch facet syndrome test Test Results +ve bilaterally Comments R >L during lateral flexion and lateral flexion with extension Straight Leg Raise Test Results +VE Comments LBP reproduced during SLR but decreased after manual pelvic stabilization PT-OP-M Strength Start: 08/25/18 08:01 Freq: Status: Active Protocol: Document 08/24/18 16:00 HH (Rec: 08/25/18 12:33 HH [email or web address]) Cervical Spine Strength Cervical Spine Manual Muscle Testing Testing Position Sitting Flexion (C1-2) 4 Good Extension 4- Good- Rotation Left 4- Good- Rotation Right 4- Good- Lateral Flexion Left (C3) 4- Good- Lateral Flexion Right (C3) 4- Good- Trunk Strength Trunk Manual Muscle Testing Flexion 3+ Fair+ Extension 4- Good- Lateral Flexion Left 3+ Fair+ Lateral Flexion Right 3+ Fair+ PT-OP-Q Treatments Start: 08/25/18 08:01 Freq: Status: Active Protocol: Document 09/08/18 14:30 GGD (Rec: 09/08/18 16:04 GGD [email or web address]) Therapeutic Exercises Supine Exercises glutes sets Supine Exercise Name glutes set Reps/Minutes 10 supine knee to hip Side bilateral Reps/Minutes 10 x 2 Comments cues on neutral spine supine march Side bilateral Reps/Minutes 10 x2 Comments cues on neutral spine Sitting Exercises doorway stretch Sitting Exercise Name lateral flexion to L Side right Reps/Minutes 5 mins table slide Sitting Exercise Name with knee extended Side bilateral Equipment Used towel on table Reps/Minutes 5 mins Comments forward and diagonal direction Standing Exercises standing posture Standing Exercise Name standing posture Reps/Minutes 5 PPT Side bilateral Reps/Minutes 10 x 2 Manual Therapy Treatment Soft Tissue Mobilization lumbar paraspinals Mobilization Type Cross-Friction Sustained Pressure Trigger Point Release Intensity/Depth Moderate Body Position Sidelying Comments tenderness noticead at SI joint area PT-OP-T Assessment and Plan Start: 08/25/18 08:01 Freq: Status: Active Protocol: Document 09/08/18 14:30 GGD (Rec: 09/08/18 16:04 JOSE [email or web address]) Physical Therapy Assessment Assessment Summary Assessment Pt had decrease pain with treatment. She had decrease pain with PPT in standing. She was unable to bridge without Hamstring mm cramps. Physical Therapy Plan Frequency and Duration Frequency of Treatment 2x/Week Duration of Treatment 12 weeks Plan of Care Start Date 08/24/18 Plan of Care End Date 11/24/18 Next Visit Focus/Plan Next Note Type Treatment Note Next Visit Plan Progress strengthing, posture and l/S ROM
--- NOTE | 2018-09-15 12:59 | PT.OTN ---
Current Diagnoses Other spondylosis with radiculopathy, cervical region (09/15/18) Spinal stenosis, cervical region (09/15/18) Low back pain (09/15/18) Physical Therapy Treatment Note PT-OP-A Visit Information Start: 08/25/18 08:01 Freq: Status: Active Protocol: Document 09/15/18 11:37 LR (Rec: 09/15/18 12:58 LR [id number]) Out-Patient Physical Therapy Visit Information Visit Information Visit Type Treatment Note Visit Start Time 11:15 Visit Stop Time 12:00 Total Visit Minutes 45 Visit Number 4 Number of DEBT AND BUDGET COUNSELOR Visits 0 PT-OP-B Current Condition Start: 08/25/18 08:01 Freq: Status: Active Protocol: Document 08/24/18 16:00 HH (Rec: 08/25/18 08:26 [id number]) Current Condition History of Current Condition Onset Date 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 Pt reports her constant LBP R >L started getting worse a year ago after moving some furniture from main floor to second floor by using the stairs. She felt like her back is very weak and limits her from bending over for a long period of time such as washing dishes, pushing grocery cart, car transfers and prolonged standing/ sitting. She also has to take half of a hydrocodone 325mg sometimes if pain gets very severe. However, she tends to feel better by moving around and walking. In addition, Pt also c/o intermittent neck pain that starts from right shoulder blades and radiates to her neck, along with constant headache. She states her WARP KNITTER HELPER tends to get aggravated every couple weeks for a few days but subside after. Explained doing UE and upperbody exercises from her strength and balance class in [facility] seem to aggravate her symptoms. However, she said her neck pain doesnt bother her as much as LBP at this point. Prior Treatments and Tests Pt had PT for LBP and hip pain with successful outcome. Treatment Goals Patient/Caregiver Goals 1. to minimize pain during car transfers, dish washing, and grocery shopping 2. To be able to self manage her pain through understanding movement pattern and participating HEP 3. increase activity tolerance . Prior Functional Status Baseline Function- ADL's Independent Baseline Function- Mobility Independent Current Functional Impairments (Reported) Functional Limitations- Recreation/ c/o WARP KNITTER HELPER and LBP after upper Hobbies body workout increased pain during functional activities : bending over for dish washing, car transfer and grocery shopping Personal Factors Other Personal Factors That May Effect constant headache Therapy/Recovery pacemaker PT-OP-C Subjective Start: 08/25/18 08:01 Freq: Status: Active Protocol: Document 09/15/18 11:37 LR (Rec: 09/15/18 12:59 LR [id number]) OP-PT Subjective Patient Comments Patient Comments Pt reports knees hurt after last session. Reports doorway stretch causes pain so she avoids it PT-OP-F Manual Assessment Start: 08/25/18 08:01 Freq: Status: Active Protocol: Document 08/24/18 16:00 HH (Rec: 08/25/18 12:23 HH [email or web address]) Manual Assessments Soft Tissue Assessment Soft Tissue Mobility Assessment lumbar paraspinals hypertrophy and excessive activation during static standing significant tenderness to pressure along paraspinals from lumbar to cervical R>L, rhomboid and levator scap Joint Mobility Assessment Joint Mobility Assessment limited flexion segmental mobility at lumbar spine and extension mobility of thoracic spine PT-OP-J Posture/Palpation/Skin Start: 08/25/18 08:01 Freq: Status: Active Protocol: Document 08/24/18 16:00 HH (Rec: 08/25/18 12:23 HH [email or web address]) Posture Evaluation Position Standing Evaluation View Lateral Head/C-Spine Posture Forward Head T-Spine Posture Increased Kyphosis L-Spine Posture Increased Lordosis Shoulder Posture (L) Rounded (R) Rounded Scapula Posture (L) Protracted (R) Protracted Pelvis Posture Anteriorly Tilted PT-OP-K Range of Motion Start: 08/25/18 08:01 Freq: Status: Active Protocol: Document 08/24/18 16:00 HH (Rec: 08/25/18 12:23 HH [email or web address]) Cervical Spine Range of Motion Cervical Spine Active Degrees Testing Position Sitting Flexion 40 Extension 45 Lateral Flexion Left 25 Lateral Flexion Right 27 Lumbar Spine Range of Motion Lumbar Spine Active Degrees Testing Position Sitting Flexion 17 Extension 15 Lateral Flexion Left 15 Lateral Flexion Right 15 ROM Limitations Pain Comments pinching pain reproduced during lateral flexion R>L PT-OP-L Special Tests Start: 08/25/18 08:01 Freq: Status: Active Protocol: Document 08/24/18 16:00 (Rec: 08/25/18 12:23 HH [email or web address]) Special Tests Cervical Spine Special Tests Spurling's Test Test Results -ve bilaterally Foraminal Compression Test Results -ve bilaterally Lumbar Spine Special Tests Standing Flexion Comments pt primarily uses hip flexion and thoracic flexion for toe touch facet syndrome test Test Results +ve bilaterally Comments R >L during lateral flexion and lateral flexion with extension Straight Leg Raise Test Results +VE Comments LBP reproduced during SLR but decreased after manual pelvic stabilization PT-OP-M Strength Start: 08/25/18 08:01 Freq: Status: Active Protocol: Document 08/24/18 16:00 (Rec: 08/25/18 12:33 [email or web address]) Cervical Spine Strength Cervical Spine Manual Muscle Testing Testing Position Sitting Flexion (C1-2) 4 Good Extension 4- Good- Rotation Left 4- Good- Rotation Right 4- Good- Lateral Flexion Left (C3) 4- Good- Lateral Flexion Right (C3) 4- Good- Trunk Strength Trunk Manual Muscle Testing Flexion 3+ Fair+ Extension 4- Good- Lateral Flexion Left 3+ Fair+ Lateral Flexion Right 3+ Fair+ PT-OP-Q Treatments Start: 08/25/18 08:01 Freq: Status: Active Protocol: Document 09/15/18 11:37 [facility] (Rec: 09/15/18 12:58 [facility] [id number]) Therapeutic Exercises Supine Exercises pelvic tilt Supine Exercise Name post Reps/Minutes 3x10 Comments focus on breathing and palpation of Tabd while performing Sitting Exercises squat Sitting Exercise Name adjsuted to sit to stand d/t difficulty with cueing hip hinge Sitting Exercise Name focus on neutral pelvis Reps/Minutes 15 side bend Sitting Exercise Name stretching Comments d/t pt unable to do standing d /t knees Manual Therapy Treatment Soft Tissue Mobilization lumbar paraspinals Body Location paraspinals & lat border of sacrum Mobilization Type Rolling Sustained Pressure Intensity/Depth Moderate Body Position Sidelying Self-Care/Home Management Treatment Education Patient Education Posture Other Education edu on difference of hip hinge vs pelvic tilt/lumbar ext, edu on importance of back straight with lifting, discussion of importance of breathing while exercising, edu on sleep posture and importance of sleep & to discuss with MD about possible vitamin deficiencies PT-OP-T Assessment and Plan Start: 08/25/18 08:01 Freq: Status: Active Protocol: Document 09/15/18 11:37 [facility] (Rec: 09/15/18 12:58 [facility] [id number]) Physical Therapy Assessment Goals Strength Impairment presents decreased abdominal and trunk extensor strength Custodial Goal (LTG) Pt will increase 1 MMT for both abdominal and trunk extensor muscle strength to improve trunk stability for functional activities such as bending over during dish washing. LTG Duration 12 weeks HEP Impairment pt does not ahve HEP Custodial Goal (LTG) Pt will comply to HEP independently with a safe bodymechanics and posture to improve overall awareness of body movements to reduce injury risk LTG Duration 8 weeks ROM Impairment reduced lumbar ROM during static and dynamic movements Custodial Goal (LTG) Pt will be able improve overall lumbar ROM by 10 degrees to improve segmental mobility for functional activities such as picking up object from floor LTG Duration 12 weeks NDI Impairment NDI at 18 (20-39% impairment) Custodial Goal (LTG) Pt will score below 10 (1-19% impairment) for NDI to improve her quality of life LTG Duration 12 weeks Assessment Summary Assessment Pt required a lot of cueing and explanation with activities and exercises today . Pt had diffuclty understanding hip hinge vs lumbar ext and was unable to perform a good quality squat but was able to achieve squatting exercises with good form when asked to do it as a sit<>stand. Physical Therapy Plan Frequency and Duration Frequency of Treatment 2x/Week Duration of Treatment 12 weeks Plan of Care Start Date 08/24/18 Plan of Care End Date 11/24/18 Next Visit Focus/Plan Next Note Type Treatment Note Next Visit Plan core control with rolling in small space, work on sleep posture & advance supine core control with pelvic tilt
--- NOTE | 2018-09-17 15:47 | PT.OTN ---
Current Diagnoses Other spondylosis with radiculopathy, cervical region (09/17/18) Spinal stenosis, cervical region (09/17/18) Low back pain (09/17/18) Physical Therapy Treatment Note PT-OP-A Visit Information Start: 08/25/18 08:01 Freq: Status: Active Protocol: Document 09/17/18 15:40 SA (Rec: 09/17/18 15:47 SA [email or web address]) Out-Patient Physical Therapy Visit Information Visit Information Visit Type Treatment Note Visit Start Time 13:00 Visit Stop Time 13:45 Total Visit Minutes 45 Visit Number 5 Number of [employer]S Visits 1 PT-OP-B Current Condition Start: 08/25/18 08:01 Freq: Status: Active Protocol: Document 08/24/18 16:00 HH (Rec: 08/25/18 08:26 HH [id number]) Current Condition History of Current Condition Onset Date 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 Pt reports her constant LBP R >L started getting worse a year ago after moving some furniture from main floor to second floor by using the stairs. She felt like her back is very weak and limits her from bending over for a long period of time such as washing dishes, pushing grocery cart, car transfers and prolonged standing/ sitting. She also has to take half of a hydrocodone 325mg sometimes if pain gets very severe. However, she tends to feel better by moving around and walking. In addition, Pt also c/o intermittent neck pain that starts from right shoulder blades and radiates to her neck, along with constant headache. She states her TOBACCO DIPPER tends to get aggravated every couple weeks for a few days but subside after. Explained doing UE and upperbody exercises from her strength and balance class in [facility] seem to aggravate her symptoms. However, she said her neck pain doesnt bother her as much as LBP at this point. Prior Treatments and Tests Pt had PT for LBP and hip pain with successful outcome. Treatment Goals Patient/Caregiver Goals 1. to minimize pain during car transfers, dish washing, and grocery shopping 2. To be able to self manage her pain through understanding movement pattern and participating HEP 3. increase activity tolerance . Prior Functional Status Baseline Function- ADL's Independent Baseline Function- Mobility Independent Current Functional Impairments (Reported) Functional Limitations- Recreation/ c/o TOBACCO DIPPER and LBP after upper Hobbies body workout increased pain during functional activities : bending over for dish washing, car transfer and grocery shopping Personal Factors Other Personal Factors That May Effect constant headache Therapy/Recovery pacemaker PT-OP-C Subjective Start: 08/25/18 08:01 Freq: Status: Active Protocol: Document 09/17/18 15:40 SA (Rec: 09/17/18 15:47 SA [email or web address]) OP-PT Subjective Patient Comments Patient Comments Pt doing HEP most days, no increased sx since last visit. Feels she is slowly improving . PT-OP-F Manual Assessment Start: 08/25/18 08:01 Freq: Status: Active Protocol: Document 08/24/18 16:00 HH (Rec: 08/25/18 12:23 HH [email or web address]) Manual Assessments Soft Tissue Assessment Soft Tissue Mobility Assessment lumbar paraspinals hypertrophy and excessive activation during static standing significant tenderness to pressure along paraspinals from lumbar to cervical R>L, rhomboid and levator scap Joint Mobility Assessment Joint Mobility Assessment limited flexion segmental mobility at lumbar spine and extension mobility of thoracic spine PT-OP-J Posture/Palpation/Skin Start: 08/25/18 08:01 Freq: Status: Active Protocol: Document 08/24/18 16:00 HH (Rec: 08/25/18 12:23 HH [email or web address]) Posture Evaluation Position Standing Evaluation View Lateral Head/C-Spine Posture Forward Head T-Spine Posture Increased Kyphosis L-Spine Posture Increased Lordosis Shoulder Posture (L) Rounded (R) Rounded Scapula Posture (L) Protracted (R) Protracted Pelvis Posture Anteriorly Tilted PT-OP-K Range of Motion Start: 08/25/18 08:01 Freq: Status: Active Protocol: Document 08/24/18 16:00 HH (Rec: 08/25/18 12:23 HH [email or web address]) Cervical Spine Range of Motion Cervical Spine Active Degrees Testing Position Sitting Flexion 40 Extension 45 Lateral Flexion Left 25 Lateral Flexion Right 27 Lumbar Spine Range of Motion Lumbar Spine Active Degrees Testing Position Sitting Flexion 17 Extension 15 Lateral Flexion Left 15 Lateral Flexion Right 15 ROM Limitations Pain Comments pinching pain reproduced during lateral flexion R>L PT-OP-L Special Tests Start: 08/25/18 08:01 Freq: Status: Active Protocol: Document 08/24/18 16:00 (Rec: 08/25/18 12:23 HH [email or web address]) Special Tests Cervical Spine Special Tests Spurling's Test Test Results -ve bilaterally Foraminal Compression Test Results -ve bilaterally Lumbar Spine Special Tests Standing Flexion Comments pt primarily uses hip flexion and thoracic flexion for toe touch facet syndrome test Test Results +ve bilaterally Comments R >L during lateral flexion and lateral flexion with extension Straight Leg Raise Test Results +VE Comments LBP reproduced during SLR but decreased after manual pelvic stabilization PT-OP-M Strength Start: 08/25/18 08:01 Freq: Status: Active Protocol: Document 08/24/18 16:00 (Rec: 08/25/18 12:33 [email or web address]) Cervical Spine Strength Cervical Spine Manual Muscle Testing Testing Position Sitting Flexion (C1-2) 4 Good Extension 4- Good- Rotation Left 4- Good- Rotation Right 4- Good- Lateral Flexion Left (C3) 4- Good- Lateral Flexion Right (C3) 4- Good- Trunk Strength Trunk Manual Muscle Testing Flexion 3+ Fair+ Extension 4- Good- Lateral Flexion Left 3+ Fair+ Lateral Flexion Right 3+ Fair+ PT-OP-Q Treatments Start: 08/25/18 08:01 Freq: Status: Active Protocol: Document 09/17/18 15:40 SA (Rec: 09/17/18 15:47 SA [email or web address]) Therapeutic Exercises Supine Exercises pelvic tilt Supine Exercise Name post Reps/Minutes 3x10 Comments focus on breathing and palpation of Tabd while performing glutes sets Supine Exercise Name glutes set Reps/Minutes 5 x 12 supine knee to hip Side bilateral Reps/Minutes 10 x 2 Comments cues on neutral spine supine march Supine Exercise Name w/ PPT Side bilateral Reps/Minutes 10 x2 Comments cues on neutral spine Sitting Exercises squat Side bilateral Reps/Minutes 15 Comments wall squat w/PPT hip hinge Sitting Exercise Name focus on neutral pelvis Reps/Minutes 15 side bend Sitting Exercise Name stretching Comments d/t pt unable to do standing d /t knees table slide Sitting Exercise Name with knee extended Side bilateral Equipment Used towel on table Reps/Minutes 5 mins Comments forward and diagonal direction Standing Exercises standing posture Standing Exercise Name standing posture Reps/Minutes 5 Manual Therapy Treatment Soft Tissue Mobilization lumbar paraspinals Body Location paraspinals & lat border of sacrum Mobilization Type Cross-Friction Rolling Sustained Pressure Intensity/Depth Moderate Body Position Prone PT-OP-T Assessment and Plan Start: 08/25/18 08:01 Freq: Status: Active Protocol: Document 09/17/18 15:40 SA (Rec: 09/17/18 15:47 SA [email or web address]) Physical Therapy Assessment Assessment Summary Assessment Cont cues for PPT with standing activity, use of Wall for squats was helpful. Pt tolerating ther ex well. Physical Therapy Plan Next Visit Focus/Plan Next Note Type Treatment Note Next Visit Plan core control with rolling in small space, work on sleep posture & advance supine core control with pelvic tilt
--- NOTE | 2018-09-20 16:27 | PT.OTN ---
Current Diagnoses Other spondylosis with radiculopathy, cervical region (09/20/18) Spinal stenosis, cervical region (09/20/18) Low back pain (09/20/18) Physical Therapy Treatment Note PT-OP-A Visit Information Start: 08/25/18 08:01 Freq: Status: Active Protocol: Document 09/20/18 15:13 LRN (Rec: 09/20/18 16:26 LRN [id number]) Out-Patient Physical Therapy Visit Information Visit Information Visit Type Treatment Note Visit Start Time 15:14 Visit Stop Time 16:10 Total Visit Minutes 56 Visit Number 6 Number of COOK HELPER DESSERT Visits 0 Evaluation Information Evaluation Date 08/25/18 Precautions Precautions Pacemaker bruise easily PT-OP-B Current Condition Start: 08/25/18 08:01 Freq: Status: Active Protocol: Document 08/24/18 16:00 HH (Rec: 08/25/18 08:26 HH [id number]) Current Condition History of Current Condition Onset Date 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 Pt reports her constant LBP R >L started getting worse a year ago after moving some furniture from main floor to second floor by using the stairs. She felt like her back is very weak and limits her from bending over for a long period of time such as washing dishes, pushing grocery cart, car transfers and prolonged standing/ sitting. She also has to take half of a hydrocodone 325mg sometimes if pain gets very severe. However, she tends to feel better by moving around and walking. In addition, Pt also c/o intermittent neck pain that starts from right shoulder blades and radiates to her neck, along with constant headache. She states her TAR LEVELER tends to get aggravated every couple weeks for a few days but subside after. Explained doing UE and upperbody exercises from her strength and balance class in [facility] seem to aggravate her symptoms. However, she said her neck pain doesnt bother her as much as LBP at this point. Prior Treatments and Tests Pt had PT for LBP and hip pain with successful outcome. Treatment Goals Patient/Caregiver Goals 1. to minimize pain during car transfers, dish washing, and grocery shopping 2. To be able to self manage her pain through understanding movement pattern and participating HEP 3. increase activity tolerance . Prior Functional Status Baseline Function- ADL's Independent Baseline Function- Mobility Independent Current Functional Impairments (Reported) Functional Limitations- Recreation/ c/o TAR LEVELER and LBP after upper Hobbies body workout increased pain during functional activities : bending over for dish washing, car transfer and grocery shopping Personal Factors Other Personal Factors That May Effect constant headache Therapy/Recovery pacemaker PT-OP-C Subjective Start: 08/25/18 08:01 Freq: Status: Active Protocol: Document 09/20/18 15:13 LRN (Rec: 09/20/18 16:26 LRN [id number]) OP-PT Subjective Patient Comments Patient Comments Back pain has gotten worse. Pain stops her in her tracks. Pain sitting is 0/10, 1 yr ago pain rated 5-6/10, now in the past few months pain is 7- 8/10. Still is bending and moving. Pain prior to therapy 7-8/10, post therapy 5-6/10. PT-OP-F Manual Assessment Start: 08/25/18 08:01 Freq: Status: Active Protocol: Document 08/24/18 16:00 HH (Rec: 08/25/18 12:23 HH [email or web address]) Manual Assessments Soft Tissue Assessment Soft Tissue Mobility Assessment lumbar paraspinals hypertrophy and excessive activation during static standing significant tenderness to pressure along paraspinals from lumbar to cervical R>L, rhomboid and levator scap Joint Mobility Assessment Joint Mobility Assessment limited flexion segmental mobility at lumbar spine and extension mobility of thoracic spine PT-OP-J Posture/Palpation/Skin Start: 08/25/18 08:01 Freq: Status: Active Protocol: Document 08/24/18 16:00 HH (Rec: 08/25/18 12:23 HH [email or web address]) Posture Evaluation Position Standing Evaluation View Lateral Head/C-Spine Posture Forward Head T-Spine Posture Increased Kyphosis L-Spine Posture Increased Lordosis Shoulder Posture (L) Rounded (R) Rounded Scapula Posture (L) Protracted (R) Protracted Pelvis Posture Anteriorly Tilted PT-OP-K Range of Motion Start: 08/25/18 08:01 Freq: Status: Active Protocol: Document 08/24/18 16:00 HH (Rec: 08/25/18 12:23 HH [email or web address]) Cervical Spine Range of Motion Cervical Spine Active Degrees Testing Position Sitting Flexion 40 Extension 45 Lateral Flexion Left 25 Lateral Flexion Right 27 Lumbar Spine Range of Motion Lumbar Spine Active Degrees Testing Position Sitting Flexion 17 Extension 15 Lateral Flexion Left 15 Lateral Flexion Right 15 ROM Limitations Pain Comments pinching pain reproduced during lateral flexion R>L PT-OP-L Special Tests Start: 08/25/18 08:01 Freq: Status: Active Protocol: Document 09/20/18 15:13 LRN (Rec: 09/20/18 16:26 LRN [id number]) Special Tests Lumbar Spine Special Tests Straight Leg Raise Test Results Negative bilaterally Comments PSLR: L 85 deg's, R 90 deg's prior to hamstring tightness PT-OP-M Strength Start: 08/25/18 08:01 Freq: Status: Active Protocol: Document 08/24/18 16:00 HH (Rec: 08/25/18 12:33 HH [email or web address]) Cervical Spine Strength Cervical Spine Manual Muscle Testing Testing Position Sitting Flexion (C1-2) 4 Good Extension 4- Good- Rotation Left 4- Good- Rotation Right 4- Good- Lateral Flexion Left (C3) 4- Good- Lateral Flexion Right (C3) 4- Good- Trunk Strength Trunk Manual Muscle Testing Flexion 3+ Fair+ Extension 4- Good- Lateral Flexion Left 3+ Fair+ Lateral Flexion Right 3+ Fair+ PT-OP-Q Treatments Start: 08/25/18 08:01 Freq: Status: Active Protocol: Document 09/20/18 15:13 LRN (Rec: 09/20/18 16:26 LRN [id number]) Therapeutic Exercises Supine Exercises pelvic tilt Supine Exercise Name TA (belly button to spine) Reps/Minutes 3x10 Comments focus on breathing and no gluteal lift glutes sets Supine Exercise Name glutes set w/legs straight Reps/Minutes 5 x 15 Sidelying Exercises TA tightening Sidelying Exercise Name TA tightening getting abdominal lift Side bilateral Reps/Minutes 4' Clamshell Sidelying Exercise Name Clamshell Side bilateral Reps/Minutes 5' Comments Extra time taken for training. Manual Therapy Treatment Soft Tissue Mobilization Coccyx Body Location Correction of a L Sidebent coccyx Mobilization Type Myofascial Release Sustained Pressure Intensity/Depth Moderate Body Position Prone Sacrum Body Location Correction of L rotated Sacrum Mobilization Type Myofascial Release Sustained Pressure Body Position Prone R Gluteals Body Location R upper gluteal and GMedius Mobilization Type Strumming Sustained Pressure Intensity/Depth Moderate Body Position Prone lumbar paraspinals Body Location R paraspinals & lat border of sacrum Mobilization Type Cross-Friction Rolling Sustained Pressure Intensity/Depth Moderate Body Position Prone Joint Mobilizations L5 on S1 Joint Correcting a L rotated L5 Direction R Rotation oscillations Grade II Body Position Prone L4 on L5 Joint Correcting a L rotated L5 Direction R Rotation oscillations Grade II Body Position Prone Reps/Duration 3' Self-Care/Home Management Treatment Education Patient Education Home Exercise Program Other Education I/S pt in log roll technique for getting in/out of bed. Discussed car transfers and recommended backing up onto seat vs hip hiking the R side up. Activities Self-Care/Home Management Activities I/S pt in Clamshell ex for HEP . PT-OP-T Assessment and Plan Start: 08/25/18 08:01 Freq: Status: Active Protocol: Document 09/20/18 15:13 LRN (Rec: 09/20/18 16:26 LRN [id number]) Physical Therapy Assessment Assessment Summary Assessment - PSLR bilaterally. Sacrum and L5 is in L rotation and there is increased ms tension and palpable pain in R gluteals. Pt would benefit from a HEP of gluteal/ piriformis/lateral hip stretching & car transfer assessment. Physical Therapy Plan Frequency and Duration Frequency of Treatment 2x/Week Duration of Treatment 12 weeks Plan of Care Start Date 08/24/18 Plan of Care End Date 11/24/18 Next Visit Focus/Plan Next Note Type Treatment Note Next Visit Plan Recommend HEP of posterior hip stretches and Clamshell strengthening; car transfer assessment; core control with rolling in small space, work on sleep posture & advance supine core control.
--- NOTE | 2018-09-29 16:21 | PT.OTN ---
Current Diagnoses Other spondylosis with radiculopathy, cervical region (09/29/18) Spinal stenosis, cervical region (09/29/18) Low back pain (09/29/18) Physical Therapy Treatment Note PT-OP-A Visit Information Start: 08/25/18 08:01 Freq: Status: Active Protocol: Document 09/29/18 16:15 SA (Rec: 09/29/18 16:20 SA [email or web address]) Out-Patient Physical Therapy Visit Information Visit Information Visit Type Treatment Note Visit Start Time 14:30 Visit Stop Time 15:18 Total Visit Minutes 48 Visit Number 8 Number of LEGISLATIVE ASSISTANT Visits 1 PT-OP-B Current Condition Start: 08/25/18 08:01 Freq: Status: Active Protocol: Document 08/24/18 16:00 HH (Rec: 08/25/18 08:26 HH [email or web address]) Current Condition History of Current Condition Onset Date 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 Pt reports her constant LBP R >L started getting worse a year ago after moving some furniture from main floor to second floor by using the stairs. She felt like her back is very weak and limits her from bending over for a long period of time such as washing dishes, pushing grocery cart, car transfers and prolonged standing/ sitting. She also has to take half of a hydrocodone 325mg sometimes if pain gets very severe. However, she tends to feel better by moving around and walking. In addition, Pt also c/o intermittent neck pain that starts from right shoulder blades and radiates to her neck, along with constant headache. She states her LIVING NURSE tends to get aggravated every couple weeks for a few days but subside after. Explained doing UE and upperbody exercises from her strength and balance class in [facility] seem to aggravate her symptoms. However, she said her neck pain doesnt bother her as much as LBP at this point. Prior Treatments and Tests Pt had PT for LBP and hip pain with successful outcome. Treatment Goals Patient/Caregiver Goals 1. to minimize pain during car transfers, dish washing, and grocery shopping 2. To be able to self manage her pain through understanding movement pattern and participating HEP 3. increase activity tolerance . Prior Functional Status Baseline Function- ADL's Independent Baseline Function- Mobility Independent Current Functional Impairments (Reported) Functional Limitations- Recreation/ c/o LIVING NURSE and LBP after upper Hobbies body workout increased pain during functional activities : bending over for dish washing, car transfer and grocery shopping Personal Factors Other Personal Factors That May Effect constant headache Therapy/Recovery pacemaker PT-OP-C Subjective Start: 08/25/18 08:01 Freq: Status: Active Protocol: Document 09/29/18 16:15 SA (Rec: 09/29/18 16:20 SA [email or web address]) OP-PT Subjective Patient Comments Patient Comments Having good and bad days with today feeling not good, took a tramodol this afternoon. PT-OP-F Manual Assessment Start: 08/25/18 08:01 Freq: Status: Active Protocol: Document 08/24/18 16:00 HH (Rec: 08/25/18 12:23 HH [email or web address]) Manual Assessments Soft Tissue Assessment Soft Tissue Mobility Assessment lumbar paraspinals hypertrophy and excessive activation during static standing significant tenderness to pressure along paraspinals from lumbar to cervical R>L, rhomboid and levator scap Joint Mobility Assessment Joint Mobility Assessment limited flexion segmental mobility at lumbar spine and extension mobility of thoracic spine PT-OP-J Posture/Palpation/Skin Start: 08/25/18 08:01 Freq: Status: Active Protocol: Document 08/24/18 16:00 HH (Rec: 08/25/18 12:23 HH [email or web address]) Posture Evaluation Position Standing Evaluation View Lateral Head/C-Spine Posture Forward Head T-Spine Posture Increased Kyphosis L-Spine Posture Increased Lordosis Shoulder Posture (L) Rounded (R) Rounded Scapula Posture (L) Protracted (R) Protracted Pelvis Posture Anteriorly Tilted PT-OP-K Range of Motion Start: 08/25/18 08:01 Freq: Status: Active Protocol: Document 08/24/18 16:00 HH (Rec: 08/25/18 12:23 HH [email or web address]) Cervical Spine Range of Motion Cervical Spine Active Degrees Testing Position Sitting Flexion 40 Extension 45 Lateral Flexion Left 25 Lateral Flexion Right 27 Lumbar Spine Range of Motion Lumbar Spine Active Degrees Testing Position Sitting Flexion 17 Extension 15 Lateral Flexion Left 15 Lateral Flexion Right 15 ROM Limitations Pain Comments pinching pain reproduced during lateral flexion R>L PT-OP-L Special Tests Start: 08/25/18 08:01 Freq: Status: Active Protocol: Document 09/20/18 15:13 LRN (Rec: 09/20/18 16:26 LRN [id number]) Special Tests Lumbar Spine Special Tests Straight Leg Raise Test Results Negative bilaterally Comments PSLR: L 85 deg's, R 90 deg's prior to hamstring tightness PT-OP-M Strength Start: 08/25/18 08:01 Freq: Status: Active Protocol: Document 08/24/18 16:00 HH (Rec: 08/25/18 12:33 HH [email or web address]) Cervical Spine Strength Cervical Spine Manual Muscle Testing Testing Position Sitting Flexion (C1-2) 4 Good Extension 4- Good- Rotation Left 4- Good- Rotation Right 4- Good- Lateral Flexion Left (C3) 4- Good- Lateral Flexion Right (C3) 4- Good- Trunk Strength Trunk Manual Muscle Testing Flexion 3+ Fair+ Extension 4- Good- Lateral Flexion Left 3+ Fair+ Lateral Flexion Right 3+ Fair+ PT-OP-Q Treatments Start: 08/25/18 08:01 Freq: Status: Active Protocol: Document 09/29/18 16:15 SA (Rec: 09/29/18 16:20 SA [email or web address]) Cardio Equipment Recumbent Elliptical ([employer]) Duration (Minutes) 7 Resistance 3 Therapeutic Exercises Supine Exercises piriformis stretch Side bilateral Reps/Minutes 30 x 2 gluteal set with PPT Reps/Minutes 10x5 TrA with pillow squeeze Reps/Minutes 10x 5 pelvic tilt Supine Exercise Name TA (belly button to spine) Reps/Minutes 2x10 Comments focus on breathing and no gluteal lift glutes sets Supine Exercise Name glut set knees bent Reps/Minutes 5 x 10 Comments khurram and unil supine march Supine Exercise Name w/ PPT Side bilateral Reps/Minutes 10 x2 Comments cues on neutral spine Sidelying Exercises Clamshell Sidelying Exercise Name Clamshell Side bilateral Reps/Minutes 5' Comments Extra time taken for training. Manual Therapy Treatment Soft Tissue Mobilization Sacrum Body Location correction of excessive sacral nutation Mobilization Type Sustained Pressure Body Position Prone R Gluteals Body Location R upper gluteal and GMedius Mobilization Type Strumming Sustained Pressure Intensity/Depth Moderate Body Position Prone lumbar paraspinals Body Location R paraspinals & lat border of sacrum Mobilization Type Cross-Friction Rolling Sustained Pressure Intensity/Depth Moderate Body Position Prone PT-OP-R Modalities Start: 08/25/18 08:01 Freq: Status: Active Protocol: Document 09/29/18 16:15 SA (Rec: 09/29/18 16:20 SA [email or web address]) Hot Pack/Cold Pack Treatment Cold Pack Patient Position Prone Treatment Duration (minutes) 10 Patient Tolerance Good PT-OP-T Assessment and Plan Start: 08/25/18 08:01 Freq: Status: Active Protocol: Document 09/29/18 16:15 SA (Rec: 09/29/18 16:20 SA [email or web address]) Physical Therapy Assessment Assessment Summary Assessment Pt tolerating ther ex and manual therapy well, revised handout for HEP, focused on core strengthening. Physical Therapy Plan Next Visit Focus/Plan Next Visit Plan Add hip stretching ex; gluteals, piriformis, hip ER. Review HEP. Work on gait mechanics with facil of correct muscle activation
--- NOTE | 2018-10-01 15:24 | PT.OTN ---
Current Diagnoses Other spondylosis with radiculopathy, cervical region (10/01/18) Spinal stenosis, cervical region (10/01/18) Low back pain (10/01/18) Physical Therapy Treatment Note PT-OP-A Visit Information Start: 08/25/18 08:01 Freq: Status: Active Protocol: Document 10/01/18 15:16 SA (Rec: 10/01/18 15:24 SA [email or web address]) Out-Patient Physical Therapy Visit Information Visit Information Visit Type Treatment Note Visit Start Time 13:45 Visit Stop Time 14:30 Total Visit Minutes 45 Visit Number 9 Number of LEAD QUALITY TECHNICIAN Visits 2 PT-OP-B Current Condition Start: 08/25/18 08:01 Freq: Status: Active Protocol: Document 08/24/18 16:00 HH (Rec: 08/25/18 08:26 HH [id number]) Current Condition History of Current Condition Onset Date 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 Pt reports her constant LBP R >L started getting worse a year ago after moving some furniture from main floor to second floor by using the stairs. She felt like her back is very weak and limits her from bending over for a long period of time such as washing dishes, pushing grocery cart, car transfers and prolonged standing/ sitting. She also has to take half of a hydrocodone 325mg sometimes if pain gets very severe. However, she tends to feel better by moving around and walking. In addition, Pt also c/o intermittent neck pain that starts from right shoulder blades and radiates to her neck, along with constant headache. She states her GEOTECHNICIAN tends to get aggravated every couple weeks for a few days but subside after. Explained doing UE and upperbody exercises from her strength and balance class in [facility] seem to aggravate her symptoms. However, she said her neck pain doesnt bother her as much as LBP at this point. Prior Treatments and Tests Pt had PT for LBP and hip pain with successful outcome. Treatment Goals Patient/Caregiver Goals 1. to minimize pain during car transfers, dish washing, and grocery shopping 2. To be able to self manage her pain through understanding movement pattern and participating HEP 3. increase activity tolerance . Prior Functional Status Baseline Function- ADL's Independent Baseline Function- Mobility Independent Current Functional Impairments (Reported) Functional Limitations- Recreation/ c/o GEOTECHNICIAN and LBP after upper Hobbies body workout increased pain during functional activities : bending over for dish washing, car transfer and grocery shopping Personal Factors Other Personal Factors That May Effect constant headache Therapy/Recovery pacemaker PT-OP-C Subjective Start: 08/25/18 08:01 Freq: Status: Active Protocol: Document 10/01/18 15:16 SA (Rec: 10/01/18 15:24 SA [email or web address]) OP-PT Subjective Patient Comments Patient Comments Feeling a little better today, doing exercises at home, stretches seem to help relieve R buttock and low back pain. PT-OP-F Manual Assessment Start: 08/25/18 08:01 Freq: Status: Active Protocol: Document 08/24/18 16:00 HH (Rec: 08/25/18 12:23 HH [email or web address]) Manual Assessments Soft Tissue Assessment Soft Tissue Mobility Assessment lumbar paraspinals hypertrophy and excessive activation during static standing significant tenderness to pressure along paraspinals from lumbar to cervical R>L, rhomboid and levator scap Joint Mobility Assessment Joint Mobility Assessment limited flexion segmental mobility at lumbar spine and extension mobility of thoracic spine PT-OP-J Posture/Palpation/Skin Start: 08/25/18 08:01 Freq: Status: Active Protocol: Document 08/24/18 16:00 HH (Rec: 08/25/18 12:23 HH [email or web address]) Posture Evaluation Position Standing Evaluation View Lateral Head/C-Spine Posture Forward Head T-Spine Posture Increased Kyphosis L-Spine Posture Increased Lordosis Shoulder Posture (L) Rounded (R) Rounded Scapula Posture (L) Protracted (R) Protracted Pelvis Posture Anteriorly Tilted PT-OP-K Range of Motion Start: 08/25/18 08:01 Freq: Status: Active Protocol: Document 08/24/18 16:00 HH (Rec: 08/25/18 12:23 HH [email or web address]) Cervical Spine Range of Motion Cervical Spine Active Degrees Testing Position Sitting Flexion 40 Extension 45 Lateral Flexion Left 25 Lateral Flexion Right 27 Lumbar Spine Range of Motion Lumbar Spine Active Degrees Testing Position Sitting Flexion 17 Extension 15 Lateral Flexion Left 15 Lateral Flexion Right 15 ROM Limitations Pain Comments pinching pain reproduced during lateral flexion R>L PT-OP-L Special Tests Start: 08/25/18 08:01 Freq: Status: Active Protocol: Document 09/20/18 15:13 LRN (Rec: 09/20/18 16:26 LRN [id number]) Special Tests Lumbar Spine Special Tests Straight Leg Raise Test Results Negative bilaterally Comments PSLR: L 85 deg's, R 90 deg's prior to hamstring tightness PT-OP-M Strength Start: 08/25/18 08:01 Freq: Status: Active Protocol: Document 08/24/18 16:00 HH (Rec: 08/25/18 12:33 HH [email or web address]) Cervical Spine Strength Cervical Spine Manual Muscle Testing Testing Position Sitting Flexion (C1-2) 4 Good Extension 4- Good- Rotation Left 4- Good- Rotation Right 4- Good- Lateral Flexion Left (C3) 4- Good- Lateral Flexion Right (C3) 4- Good- Trunk Strength Trunk Manual Muscle Testing Flexion 3+ Fair+ Extension 4- Good- Lateral Flexion Left 3+ Fair+ Lateral Flexion Right 3+ Fair+ PT-OP-Q Treatments Start: 08/25/18 08:01 Freq: Status: Active Protocol: Document 10/01/18 15:16 SA (Rec: 10/01/18 15:24 SA [email or web address]) Cardio Equipment Recumbent Elliptical ([employer]) Duration (Minutes) 7 Resistance 4 Therapeutic Exercises Supine Exercises gluteal set with PPT Side bilateral Reps/Minutes 5 x 15 Comments w/ bridge TrA with pillow squeeze Side bilateral Reps/Minutes 5 x 15 pelvic tilt Supine Exercise Name TA (belly button to spine) Reps/Minutes 2x10 Comments focus on breathing and no gluteal lift glutes sets Supine Exercise Name glut set knees bent Reps/Minutes 5 x 10 Comments khurram and unil supine knee to hip Side bilateral Reps/Minutes 10 x 2 Comments cues on neutral spine supine march Supine Exercise Name w/ PPT Side bilateral Reps/Minutes 10 x2 Comments cues on neutral spine Sidelying Exercises Reverse Clamshell Side bilateral Reps/Minutes 15 x each Clamshell Sidelying Exercise Name Clamshell Side bilateral Equipment Used 2# Reps/Minutes 15 x each Sitting Exercises squat Side bilateral Reps/Minutes 15 Comments wall squat w/PPT Manual Therapy Treatment Soft Tissue Mobilization R Gluteals Body Location R upper gluteal and GMedius Mobilization Type Strumming Sustained Pressure Intensity/Depth Moderate Body Position Prone lumbar paraspinals Body Location R paraspinals & lat border of sacrum Mobilization Type Cross-Friction Rolling Sustained Pressure Intensity/Depth Moderate Body Position Prone Joint Mobilizations L5 on S1 Joint Correcting a L rotated L5 Direction R Rotation oscillations Grade II Body Position Prone L4 on L5 Joint Correcting a L rotated L5 Direction R Rotation oscillations Grade II Body Position Prone Reps/Duration 3' PT-OP-R Modalities Start: 08/25/18 08:01 Freq: Status: Active Protocol: Document 09/29/18 16:15 SA (Rec: 09/29/18 16:20 SA [email or web address]) Hot Pack/Cold Pack Treatment Cold Pack Patient Position Prone Treatment Duration (minutes) 10 Patient Tolerance Good PT-OP-T Assessment and Plan Start: 08/25/18 08:01 Freq: Status: Active Protocol: Document 10/01/18 15:16 SA (Rec: 10/01/18 15:24 SA [email or web address]) Physical Therapy Assessment Assessment Summary Assessment Cont work on core and glute strengthening, pt tolerated well. Cues for core engagement with transitional movements. Physical Therapy Plan Next Visit Focus/Plan Next Note Type Treatment Note Next Visit Plan Add hip stretching ex; gluteals, piriformis, hip ER. Review HEP. Work on gait mechanics with facil of correct muscle activation
== END 2018-10-02 12:32 ==
LOC: PHYS 13:45
PROVIDERS: Family Provider Internal Medicine; PCP Internal Medicine; Visit Provider Physical Medicine & Rehabilitation
DX: M48.02 Spinal stenosis, cervical region (principal); M47.22 Other spondylosis with radiculopathy, cervical region; M54.5 Low back pain
CPT/HCPCS: 97110; 97140; 97162; 97535

== ENCOUNTER → 2018-12-28 13:23 | Outpatient (CLI) | payer MEDICARE, OTHER, SELFPAY ==
[2018-12-30 16:23] LABS: Fecal Immunochemical Test NOT DETECTED (NOT DETECTED)
== END ==
PROVIDERS: PCP Physician Assistant; Visit Provider Physician Assistant
DX: Z12.11 Encounter for screening for malignant neoplasm of colon (principal)
CPT/HCPCS: 82274

== ENCOUNTER → 2019-01-03 13:38 | Outpatient (CLI) | payer MEDICARE, OTHER, SELFPAY | PROVIDERS: PCP Physician Assistant; Visit Provider Physician Assistant | DX: M85.852 Other specified disorders of bone density and structure, left thigh (principal); Z78.0 Asymptomatic menopausal state; E28.39 Other primary ovarian failure; E07.9 Disorder of thyroid, unspecified; Z82.62 Family history of osteoporosis | CPT/HCPCS: 77080 ==

== ENCOUNTER → 2019-03-14 08:31 | Outpatient (CLI) | payer MEDICARE, OTHER, SELFPAY ==
[2019-03-14 10:07] LABS: Alanine Aminotransferase 25 IU/L (<35); Albumin 4.2 g/dL (3.5-5.0); Albumin Globulin Ratio 1.4 (1.0-2.8); Alkaline Phosphatase 62 U/L (38-126); Aspartate Aminotransferase 32 IU/L (14-36); BUN Creatinine Ratio 16.3 (6-22); Bilirubin Total 0.8 mg/dL (0.2-1.3); Blood Urea Nitrogen 13 mg/dL (7-17); Calcium 9.6 mg/dL (8.4-10.2); Carbon Dioxide 28 mmol/L (22-32); Chloride 102 mmol/L (98-107); Cholesterol 198 mg/dL (140-199); Estimated Glomerular Filt Rate > 60.0 mL/min (>60); Glucose 110 mg/dL (80-110); HDL Cholesterol 77 mg/dL (40-60); HEMOLYSIS 18 (0-50); LDL Cholesterol Calculated 105 mg/dL (<100); Potassium 4.8 mmol/L (3.4-5.1); Sodium 138 mmol/L (137-145); Total Protein 7.2 g/dL (6.3-8.2); Triglycerides 78 mg/dL (35-150)
[2019-03-14 10:33] LABS: Thyroid Stimulating Hormone 1.79 uIU/mL (0.47-4.68)
[2019-03-14 10:35] LABS: Creatinine Urine Random 95.2 mg/dL
[2019-03-14 10:39] LABS: Microalbumi Creatinin Ratio Ur 6.3 ug/mg CR (<30); Microalbumin Urine Random 0.6 mg/dL (0-1.6)
== END ==
PROVIDERS: PCP Physician Assistant; Visit Provider Physician Assistant
DX: E03.9 Hypothyroidism, unspecified (principal); E78.5 Hyperlipidemia, unspecified; I25.10 Atherosclerotic heart disease of native coronary artery without angina pectoris; I48.20 Chronic atrial fibrillation, unspecified; M81.0 Age-related osteoporosis without current pathological fracture
CPT/HCPCS: 36415; 80053; 80061; 82043; 82306; 82570; 84443

== ENCOUNTER → 2019-03-30 11:53 | Outpatient (CLI) | payer MEDICARE, OTHER, SELFPAY ==
--- NOTE | 2019-03-30 11:55 | DI.RAD.S_ITS ---
PROCEDURE: XR KNEE LT 3V INDICATIONS: Left knee pain TECHNIQUE: 3 views of the knee were acquired. COMPARISON: [facility], , KNEE 3V RIGHT, 06/14/2014, 16:31. FINDINGS: Bones: No fractures or dislocations. No suspicious bony lesions. Slight disc height reduction is noted at the medial compartment. Soft tissues: No joint effusion. No suspicious soft tissue calcifications. IMPRESSION: No trauma found. No effusion or loose body seen. 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 Dictated by: Jono Marie M.D. on 03/30/2019 at 12:38 Approved by: Jono Marie M.D. on 03/30/2019 at 12:39
== END ==
PROVIDERS: PCP Physician Assistant; Visit Provider Physical Medicine & Rehabilitation
DX: M25.562 Pain in left knee (principal); S83.512S Sprain of anterior cruciate ligament of left knee, sequela; M17.12 Unilateral primary osteoarthritis, left knee; R26.81 Unsteadiness on feet
CPT/HCPCS: 73562; 99213

== ENCOUNTER → 2019-04-26 13:34 | Outpatient (CLI) | payer MEDICARE, OTHER, SELFPAY ==
--- NOTE | 2019-04-26 13:35 | DI.MG.S_ITS ---
BILATERAL DIGITAL DIAGNOSTIC MAMMOGRAM 3D/2D: 04/26/2019 CLINICAL: Patient reports improving, non focal left breast pain which she described as originating from her back and radiates anteriorly in the left breast on occasion. Denies any focal palpable abnormalities. Comparison is made to exams dated: 07/25/2014 mammogram, 02/23/2008 mammogram, and 06/25/2001 mammogram - [facility]. There are scattered fibroglandular elements in both breasts. There are stable benign normal lymph nodes in both axilla. No significant masses, calcifications, or other findings are seen in either breast. IMPRESSION: There is no abnormality seen in either breast to correspond with the area of clinical concern and pain. Recommend clinical follow up for persistent or worsening symptoms. There is no mammographic evidence of malignancy. A 1 year screening mammogram is recommended. This exam was interpreted at Station ID: [id number]. NOTE: For mammograms, a report in lay terms will be sent to the patient. Approximately 15% of breast malignancies will not be visualized mammographically. In the management of a palpable breast mass, a negative mammogram must not discourage biopsy of a clinically suspicious lesion. Electronically Signed By: Cortes Hernandez M.D. at/:04/26/2019 14:30:39 copy to: Donovan Rodríguez Stephen letter sent: Normal Exam ACR BI-RADS Category 2: Benign Finding(s) 3342F
== END ==
PROVIDERS: PCP Physician Assistant; Referring Provider Physician Assistant; Visit Provider Physician Assistant
DX: N64.4 Mastodynia (principal); N63.20 Unspecified lump in the left breast, unspecified quadrant
CPT/HCPCS: 77066; G0279

== ENCOUNTER → 2019-07-18 08:14 | Outpatient (CLI) | payer MEDICARE, OTHER, SELFPAY ==
[2019-07-18 08:46] LABS: Add Manual Diff / Slide Review NO; Basophils Absolute Auto 0 /uL (0-100); Basophils Percent Auto 0.8 % (0-2); Eosinophils Absolute Auto 200 /uL (0-450); Eosinophils Percent Auto 4.3 % (2-4); Hemoglobin 13.6 g/dL (12.0-16.0); Lymphocytes Absolute Auto 1600 /uL (1100-4500); Lymphocytes Percent Auto 32.7 % (25-40); Mean Corpuscular HGB Conc 33.2 % (30-36); Mean Corpuscular Hemoglobin 32.1 PG (26-34); Mean Corpuscular Volume 96.6 fL (80-100); Monocytes Absolute Auto 700 /uL (0-900); Monocytes Percent Auto 13.7 % (3-14); Neutrophils Absolute Auto 2400 /uL (1500-7000); Neutrophils Percent Auto 48.5 % (50-75); Platelet Count 179 X10^3/uL (150-400); Red Blood Cell Count 4.25 X10^6/uL (4.0-5.2); Red Cell Distribution Width 13.4 % (11.6-14.8); White Blood Cell Count 4.9 X10^3/uL (4.5-11.0)
[2019-07-18 08:59] LABS: Alanine Aminotransferase 20 IU/L (<35); Albumin 4.2 g/dL (3.5-5.0); Albumin Globulin Ratio 1.4 (1.0-2.8); Alkaline Phosphatase 57 U/L (38-126); Aspartate Aminotransferase 28 IU/L (14-36); BUN Creatinine Ratio 24.6 (6-22); Bilirubin Total 0.9 mg/dL (0.2-1.3); Blood Urea Nitrogen 16 mg/dL (7-17); Calcium 9.5 mg/dL (8.4-10.2); Carbon Dioxide 24 mmol/L (22-32); Chloride 106 mmol/L (98-107); Cholesterol 183 mg/dL (140-199); Estimated Glomerular Filt Rate > 60.0 mL/min (>60); Glucose 120 mg/dL (80-110); HDL Cholesterol 71 mg/dL (40-60); HEMOLYSIS < 15 (0-50); LDL Cholesterol Calculated 93 mg/dL (<100); Sodium 138 mmol/L (137-145); Total Protein 7.2 g/dL (6.3-8.2); Triglycerides 96 mg/dL (35-150)
== END ==
PROVIDERS: PCP Physician Assistant; Referring Provider Internal Medicine Cardiovascular Disease; Visit Provider Internal Medicine Cardiovascular Disease
DX: I10 Essential (primary) hypertension (principal); I48.20 Chronic atrial fibrillation, unspecified; E78.5 Hyperlipidemia, unspecified
CPT/HCPCS: 36415; 80053; 80061; 85025

== ENCOUNTER → 2020-01-17 10:49 | Outpatient (CLI) | payer MEDICARE, OTHER, SELFPAY ==
[2020-01-17 11:25] LABS: COVID19 -Nasal RAPID Negative (Negative)
== END ==
PROVIDERS: PCP Family Medicine; Visit Provider Family Medicine Sleep Medicine
DX: G47.33 Obstructive sleep apnea (adult) (pediatric) (principal); Z11.59 Encounter for screening for other viral diseases
CPT/HCPCS: 87635; C9803

== ENCOUNTER → 2020-11-16 15:54 | Outpatient (CLI) | payer MEDICARE, OTHER, SELFPAY ==
--- NOTE | 2020-11-16 | DI.MG.S_ITS ---
BILATERAL DIGITAL SCREENING MAMMOGRAM 3D/2D WITH CAD: 11/16/2020 CLINICAL: Routine screening. Comparison is made to exams dated: 04/26/2019 mammogram, 07/25/2014 mammogram, and 02/23/2008 mammogram - [facility]. There are scattered fibroglandular elements in both breasts. Current study was also evaluated with a Computer Aided Detection (CAD) system. No significant masses, calcifications, or other findings are seen in either breast. There has been no significant interval change. IMPRESSION: NEGATIVE There is no mammographic evidence of malignancy. A 1 year screening mammogram is recommended. This exam was interpreted at Station ID: [id number]. NOTE: For mammograms, a report in lay terms will be sent to the patient. Approximately 15% of breast malignancies will not be visualized mammographically. In the management of a palpable breast mass, a negative mammogram must not discourage biopsy of a clinically suspicious lesion. Electronically Signed By: Sulaiman maradiaga/[email or web address]:11/16/2020 16:49:51 copy to: Donovan Mitchell letter sent: Normal Exam ACR BI-RADS Category 1: Negative 3341F
== END ==
PROVIDERS: PCP Family Medicine; Referring Provider Family Medicine; Visit Provider Family Medicine
DX: Z12.31 Encounter for screening mammogram for malignant neoplasm of breast (principal)
CPT/HCPCS: 77063; 77067

== ENCOUNTER → 2021-01-22 10:51 | Outpatient (CLI) | payer MEDICARE, OTHER, SELFPAY ==
[2021-01-22 13:44] LABS: COVID19 -Nasal RAPID Negative (Negative)
== END ==
PROVIDERS: PCP Family Medicine; Visit Provider Nurse Practitioner Family
DX: Z20.822 Contact with and (suspected) exposure to COVID-19 (principal)
CPT/HCPCS: 87635

== ENCOUNTER → 2021-02-28 10:55 | Outpatient (CLI) | payer MEDICARE, OTHER, SELFPAY ==
--- NOTE | 2021-02-28 10:58 | DI.RAD.S_ITS ---
PROCEDURE: XR SHOULDER RT MIN 2V INDICATIONS: pain TECHNIQUE: 3 views of the shoulder were acquired. COMPARISON: [facility], CR, XR SHOULDER RT MIN 2V, 07/19/2018, 14:41. FINDINGS: Bones: No acute fracture or dislocation. Stable appearance of moderate hypertrophic osteoarthritic changes of the right acromioclavicular joint. Moderate degenerative changes of the right glenohumeral joint. Coracoclavicular and acromioclavicular intervals are maintained. Visualized portions of the ribs are intact. Soft tissues: No suspicious soft tissue calcifications. Visualized portions of the lungs are clear. IMPRESSION: Right shoulder without acute fracture or dislocation. Osteoarthritic changes of the right acromioclavicular and glenohumeral joints. Dictated by: Cortes Hernandez M.D. on 02/28/2021 at 15:24 Approved by: Cortes Hernandez M.D. on 02/28/2021 at 15:25
== END ==
PROVIDERS: PCP Family Medicine; Referring Provider Family Medicine; Visit Provider Family Medicine
DX: M25.511 Pain in right shoulder (principal); G89.29 Other chronic pain
CPT/HCPCS: 73030

== ENCOUNTER → 2022-02-12 09:13 | Outpatient (CLI) | payer MEDICARE, OTHER, SELFPAY ==
[2022-02-12 11:44] LABS: Cholesterol 182 mg/dL (140-199); HDL Cholesterol 77 mg/dL (40-60); LDL Cholesterol Calculated 90 mg/dL (<100); Triglycerides 77 mg/dL (35-150)
== END ==
PROVIDERS: PCP Family Medicine; Referring Provider Internal Medicine Cardiovascular Disease; Visit Provider Internal Medicine Cardiovascular Disease
DX: I25.810 Atherosclerosis of coronary artery bypass graft(s) without angina pectoris (principal)
CPT/HCPCS: 36415; 80061

== ENCOUNTER → 2022-04-12 12:59 | Outpatient (CLI) | payer MEDICARE, OTHER, SELFPAY ==
--- NOTE | 2022-04-12 13:02 | DI.MG.S_ITS ---
BILATERAL DIGITAL SCREENING MAMMOGRAM 3D/2D WITH CAD: 04/12/2022 CLINICAL: Routine screening. Comparison is made to exams dated: 11/16/2020 mammogram, 04/26/2019 mammogram, and 07/25/2014 mammogram - [facility]. Both breasts are almost entirely fatty (category a/<25% glandular tissue). Current study was also evaluated with a Computer Aided Detection (CAD) system. No significant masses, calcifications, or other findings are seen in either breast. There has been no significant interval change. IMPRESSION: NEGATIVE There is no mammographic evidence of malignancy. A 1 year screening mammogram is recommended. This exam was interpreted at Station ID: [id number]. NOTE: For mammograms, a report in lay terms will be sent to the patient. Approximately 15% of breast malignancies will not be visualized mammographically. In the management of a palpable breast mass, a negative mammogram must not discourage biopsy of a clinically suspicious lesion. Electronically Signed By: Mile [email or web address]/[email or web address]:04/14/2022 13:31:05 copy to: Donovan Mitchell letter sent: Normal Exam ACR BI-RADS Category 1: Negative 3341F
== END ==
PROVIDERS: PCP Family Medicine; Referring Provider Family Medicine; Visit Provider Family Medicine
DX: Z12.31 Encounter for screening mammogram for malignant neoplasm of breast (principal)
CPT/HCPCS: 77063; 77067

== ENCOUNTER → 2022-08-11 07:55 | Outpatient (CLI) | payer MEDICARE, OTHER, SELFPAY ==
[2022-08-11 09:35] LABS: INR 1.3 (0.9-1.3); Prothrombin Time 15.1 SECONDS (10.1-12.7)
== END ==
PROVIDERS: PCP Family Medicine; Referring Provider Registered Nurse; Visit Provider Registered Nurse
DX: R58 Hemorrhage, not elsewhere classified (principal)
CPT/HCPCS: 36415; 85610

== ENCOUNTER → 2022-12-03 16:34 | Outpatient (CLI) | payer MEDICARE, OTHER, SELFPAY ==
[2022-12-03 17:25] LABS: Add Manual Diff / Slide Review NO; Basophils Absolute Auto 100 /uL (0-100); Basophils Percent Auto 0.8 % (0-2); Eosinophils Absolute Auto 200 /uL (0-450); Eosinophils Percent Auto 2.6 % (2-4); Hematocrit 39.9 % (36-46); Hemoglobin 13.4 g/dL (12.0-16.0); Lymphocytes Absolute Auto 2000 /uL (1100-4500); Lymphocytes Percent Auto 29.5 % (25-40); Mean Corpuscular HGB Conc 33.5 % (30-36); Mean Corpuscular Hemoglobin 32.1 PG (26-34); Monocytes Absolute Auto 900 /uL (0-900); Monocytes Percent Auto 13.2 % (3-14); Neutrophils Absolute Auto 3700 /uL (1500-7000); Neutrophils Percent Auto 53.9 % (50-75); Platelet Count 193 X10^3/uL (150-400); Red Blood Cell Count 4.16 X10^6/uL (4.0-5.2); Red Cell Distribution Width 13.7 % (11.6-14.8); White Blood Cell Count 6.9 X10^3/uL (4.5-11.0)
[2022-12-03 18:20] LABS: Alanine Aminotransferase 27 IU/L (<35); Albumin 4.2 g/dL (3.5-5.0); Albumin Globulin Ratio 1.5 (1.0-2.8); Alkaline Phosphatase 78 U/L (38-126); Aspartate Aminotransferase 31 IU/L (14-36); BUN Creatinine Ratio 18.9 (6-22); Bilirubin Total 0.6 mg/dL (0.2-1.3); Blood Urea Nitrogen 14 mg/dL (7-17); Carbon Dioxide 26 mmol/L (22-32); Chloride 102 mmol/L (98-107); Estimated Glomerular Filt Rate > 60 mL/min (>60); Globulin 2.8 g/dL (1.7-4.1); Glucose 83 mg/dL (80-110); HEMOLYSIS < 15 (0-50); Potassium 4.2 mmol/L (3.4-5.1); Sodium 136 mmol/L (137-145)
[2022-12-03 18:38] LABS: Vitamin D 25 Hydroxy (D3) 26.1 ng/mL (30.0-100.0)
[2022-12-03 18:51] LABS: TSH w/ Reflex to FT4 0.89 uIU/mL (0.47-4.68)
[2022-12-07 18:36] LABS: Estrogen 93 pg/mL (40-244)
== END ==
PROVIDERS: PCP Family Medicine; Referring Provider Physician Assistant; Visit Provider Physician Assistant
DX: E03.9 Hypothyroidism, unspecified (principal); E55.9 Vitamin D deficiency, unspecified; I48.20 Chronic atrial fibrillation, unspecified; Z79.01 Long term (current) use of anticoagulants
CPT/HCPCS: 36415; 80053; 82306; 82672; 84443; 85025

== ENCOUNTER → 2023-01-24 08:49 | Outpatient (CLI) | payer MEDICARE, OTHER, SELFPAY ==
[2023-01-24 09:51] LABS: Cholesterol 196 mg/dL (140-199); HDL Cholesterol 97 mg/dL (40-60); LDL Cholesterol Calculated 87 mg/dL (<100); Triglycerides 62 mg/dL (35-150)
== END ==
PROVIDERS: PCP Family Medicine; Referring Provider Internal Medicine Cardiovascular Disease; Visit Provider Internal Medicine Cardiovascular Disease
DX: I25.810 Atherosclerosis of coronary artery bypass graft(s) without angina pectoris (principal)
CPT/HCPCS: 36415; 80061

== ENCOUNTER → 2023-08-26 13:06 | Outpatient (CLI) | payer MEDICARE, OTHER, SELFPAY ==
--- NOTE | 2023-08-26 13:09 | DI.RAD.S_ITS ---
PROCEDURE: XR HIP W PEL IF DONE BARBARA MIN 4V INDICATIONS: Increasing weakness in RLE; pain R upper thigh TECHNIQUE: AP pelvis with lateral view(s) of the right hip(s). COMPARISON: None. FINDINGS: Bones: At the site of prior proximal right femoral fracture, there is a focal cortical defect and a suggestion of irregular osteopenia. Lifted periosteal bridging present. Soft tissues: The visualized bowel gas pattern is normal. No suspicious soft tissue calcifications. IMPRESSION: Irregularity at the proximal right femoral prior fracture site raises the possibility of chronic osteomyelitis. Consider follow-up CT or MR evaluation Approved by: Ronaldo Warren M.D. on 08/26/2023 at 19:19
== END ==
PROVIDERS: PCP Family Medicine; Referring Provider Physician Assistant; Visit Provider Physician Assistant
DX: S72.001S Fracture of unspecified part of neck of right femur, sequela (principal); M48.061 Spinal stenosis, lumbar region without neurogenic claudication; R29.898 Other symptoms and signs involving the musculoskeletal system; G31.83 Neurocognitive disorder with Lewy bodies; F02.80 Dementia in other diseases classified elsewhere, unspecified severity, without behavioral disturbance, psychotic disturbance, mood disturbance, and anxiety; X58.XXXS Exposure to other specified factors, sequela
CPT/HCPCS: 73522

== ENCOUNTER → 2023-09-01 14:04 | Outpatient (CLI) | payer MEDICARE, OTHER, SELFPAY ==
--- NOTE | 2023-09-01 14:06 | DI.CT.S_ITS ---
PROCEDURE: CT LUMBAR SPINE WO CON INDICATIONS: Increasing weakness in right lower extremity, pain in thigh TECHNIQUE: Noncontrast 3 mm thick sections acquired from the T12 level to the sacrum. Sagittal and coronal reformats were constructed. For radiation dose reduction, the following was used: automated exposure control. COMPARISON: [facility], CT, CT LUMBAR SPINE WO CON, 07/22/2018, 9:58. FINDINGS: Image quality: Excellent. Bones: Convex left scoliosis, Javier angle of 19?. Grade 1 anterolisthesis of L4 on L5 and L5 on S1. Grade 1 retrolisthesis of L1 on L2. No acute vertebral body compression fractures. No suspicious lytic or blastic bony lesions. No pars defects. T12-L1: Severe disc height loss, progressed from prior. Moderate facet arthrosis. L1-L2: Severe disc height loss. Right greater than left facet arthrosis. Moderate to severe bilateral neural foraminal narrowing. L2-L3: Severe disc height loss. Moderate bilateral facet arthrosis. Severe right neural foraminal narrowing. L3-L4: Severe disc height loss. Severe facet arthrosis on the right and moderate on the left. Moderate to severe right and moderate left neural foraminal narrowing. L4-L5: Severe disc height loss. Severe facet hypertrophy. Severe spinal canal narrowing. Moderate to severe bilateral neural foraminal narrowing. L5-S1: Severe disc height loss. Severe facet arthrosis. Moderate to severe bilateral neural foraminal narrowing. Soft tissues: No retroperitoneal masses or hematomas. Visualized aorta is normal in caliber. IMPRESSION: Progressive degenerative disc disease. Of note: Up to severe spinal canal narrowing at L4-5. Up to severe neural foraminal narrowing at L2-3. Moderate to severe at many other levels. Dictated by: Gregory Almanza M.D. on 09/01/2023 at 17:14 Approved by: Gregory Almanza M.D. on 09/01/2023 at 17:19
== END ==
PROVIDERS: PCP Family Medicine; Referring Provider Physician Assistant; Visit Provider Physician Assistant
DX: G31.83 Neurocognitive disorder with Lewy bodies (principal); R29.898 Other symptoms and signs involving the musculoskeletal system; M48.061 Spinal stenosis, lumbar region without neurogenic claudication; M48.07 Spinal stenosis, lumbosacral region; M51.36 Other intervertebral disc degeneration, lumbar region; M51.37 Other intervertebral disc degeneration, lumbosacral region; F02.80 Dementia in other diseases classified elsewhere, unspecified severity, without behavioral disturbance, psychotic disturbance, mood disturbance, and anxiety
CPT/HCPCS: 72131

== ENCOUNTER → 2024-03-14 09:41 | Outpatient (CLI) | payer MEDICARE, OTHER, SELFPAY ==
[2024-03-14 11:06] LABS: Add Manual Diff / Slide Review NO; Basophils Absolute Auto 0 /uL (0-100); Basophils Percent Auto 0.5 % (0-2); Eosinophils Absolute Auto 200 /uL (0-450); Eosinophils Percent Auto 2.9 % (2-4); Hematocrit 41.3 % (36-46); Hemoglobin 13.5 g/dL (12.0-16.0); Lymphocytes Absolute Auto 2100 /uL (1100-4500); Lymphocytes Percent Auto 31.9 % (25-40); Mean Corpuscular HGB Conc 32.8 % (30-36); Mean Corpuscular Hemoglobin 31.7 PG (26-34); Mean Corpuscular Volume 96.6 fL (80-100); Monocytes Absolute Auto 800 /uL (0-900); Monocytes Percent Auto 11.7 % (3-14); Neutrophils Absolute Auto 3400 /uL (1500-7000); Platelet Count 202 X10^3/uL (150-400); Red Blood Cell Count 4.28 X10^6/uL (4.0-5.2); Red Cell Distribution Width 14.1 % (11.6-14.8); White Blood Cell Count 6.4 X10^3/uL (4.5-11.0)
[2024-03-14 11:34] LABS: Alanine Aminotransferase 24 IU/L (<35); Albumin 4.2 g/dL (3.5-5.0); Albumin Globulin Ratio 1.6 (1.0-2.8); Alkaline Phosphatase 81 U/L (38-126); Aspartate Aminotransferase 32 IU/L (14-36); BUN Creatinine Ratio 17.6 (6-22); Blood Urea Nitrogen 12 mg/dL (7-17); Calcium 9.7 mg/dL (8.4-10.2); Carbon Dioxide 27 mmol/L (22-32); Chloride 105 mmol/L (98-107); Estimated Glomerular Filt Rate > 60 mL/min (>60); Globulin 2.7 g/dL (1.7-4.1); Glucose 94 mg/dL (80-110); HEMOLYSIS < 15 (0-50); Potassium 4.2 mmol/L (3.4-5.1); Sodium 138 mmol/L (137-145); Total Protein 6.9 g/dL (6.3-8.2)
== END ==
LOC: LAB 09:43
PROVIDERS: PCP Family Medicine; Referring Provider Internal Medicine Cardiovascular Disease; Visit Provider Internal Medicine Cardiovascular Disease
DX: I48.20 Chronic atrial fibrillation, unspecified (principal)
CPT/HCPCS: 36415; 80053; 85025

== ENCOUNTER → 2024-06-04 08:36 | Outpatient (CLI) | payer MEDICARE, OTHER, SELFPAY ==
[2024-06-04 09:41] LABS: BUN Creatinine Ratio 24.3 (6-22); Blood Urea Nitrogen 17 mg/dL (7-17); Calcium 9.9 mg/dL (8.4-10.2); Carbon Dioxide 27 mmol/L (22-32); Chloride 104 mmol/L (98-107); Estimated Glomerular Filt Rate > 60 mL/min (>60); Glucose 106 mg/dL (80-110); HEMOLYSIS < 15 (0-50); Potassium 4.1 mmol/L (3.4-5.1); Sodium 139 mmol/L (137-145)
== END ==
LOC: LAB 08:37
PROVIDERS: PCP Family Medicine; Referring Provider Internal Medicine Cardiovascular Disease; Visit Provider Internal Medicine Cardiovascular Disease
DX: Z95.0 Presence of cardiac pacemaker (principal)
CPT/HCPCS: 36415; 80048

== ENCOUNTER → 2024-06-06 13:20 | Outpatient (CLI) | payer MEDICARE, OTHER, SELFPAY ==
[2024-06-06 13:52] LABS: Add Manual Diff / Slide Review NO; Basophils Absolute Auto 100 /uL (0-100); Basophils Percent Auto 0.8 % (0-2); Eosinophils Absolute Auto 100 /uL (0-450); Eosinophils Percent Auto 1.6 % (2-4); Hematocrit 38.5 % (36-46); Hemoglobin 12.9 g/dL (12.0-16.0); Lymphocytes Absolute Auto 1800 /uL (1100-4500); Lymphocytes Percent Auto 26.6 % (25-40); Mean Corpuscular HGB Conc 33.6 % (30-36); Mean Corpuscular Hemoglobin 32.4 PG (26-34); Mean Corpuscular Volume 96.4 fL (80-100); Monocytes Absolute Auto 900 /uL (0-900); Monocytes Percent Auto 13.2 % (3-14); Neutrophils Absolute Auto 3900 /uL (1500-7000); Neutrophils Percent Auto 57.8 % (50-75); Platelet Count 192 X10^3/uL (150-400); Red Blood Cell Count 3.99 X10^6/uL (4.0-5.2); Red Cell Distribution Width 14.3 % (11.6-14.8); White Blood Cell Count 6.7 X10^3/uL (4.5-11.0)
== END ==
PROVIDERS: PCP Family Medicine; Referring Provider Internal Medicine Cardiovascular Disease; Visit Provider Internal Medicine Cardiovascular Disease
DX: I48.20 Chronic atrial fibrillation, unspecified (principal)
CPT/HCPCS: 36415; 85025

== ENCOUNTER → 2024-09-06 14:40 | Outpatient (CLI) | payer MEDICARE, OTHER, SELFPAY | PROVIDERS: PCP Family Medicine; Visit Provider Family Medicine | DX: R39.9 Unspecified symptoms and signs involving the genitourinary system (principal) | CPT/HCPCS: 81002; 87077; 87086; 87186 ==

== ENCOUNTER → 2025-01-23 08:18 | Outpatient (CLI) | payer MEDICARE, OTHER, SELFPAY ==
[2025-01-23 08:33] LABS: Add Manual Diff / Slide Review NO; Hematocrit 40.2 % (36-46); Hemoglobin 13.3 g/dL (12.0-16.0); Lymphocytes Absolute Auto 1700 /uL (1100-4500); Mean Corpuscular HGB Conc 33.1 % (30-36); Mean Corpuscular Hemoglobin 31.8 PG (26-34); Mean Corpuscular Volume 96.1 fL (80-100); Platelet Count 180 X10^3/uL (150-400)
[2025-01-23 10:52] LABS: Alanine Aminotransferase 47 IU/L (<35); Albumin 4.5 g/dL (3.5-5.0); Albumin Globulin Ratio 1.7 (1.0-2.8); Alkaline Phosphatase 78 U/L (38-126); Blood Urea Nitrogen 17 mg/dL (7-17); Calcium 9.9 mg/dL (8.4-10.2); Carbon Dioxide 25 mmol/L (22-32); Chloride 104 mmol/L (98-107); Cholesterol 179 mg/dL (140-199); Estimated Glomerular Filt Rate > 60 mL/min (>60); Globulin 2.7 g/dL (1.7-4.1); Glucose 107 mg/dL (70-99); HDL Cholesterol 103 mg/dL (40-60); HEMOLYSIS < 15 (0-50); Potassium 4.7 mmol/L (3.4-5.1); Sodium 138 mmol/L (137-145); Total Protein 7.2 g/dL (6.3-8.2); Triglycerides 88 mg/dL (35-150)
[2025-01-23 11:21] LABS: TSH w/ Reflex to FT4 0.65 uIU/mL (0.47-4.68)
== END ==
PROVIDERS: PCP Family Medicine; Referring Provider Family Medicine; Visit Provider Family Medicine
DX: E03.9 Hypothyroidism, unspecified (principal); I25.10 Atherosclerotic heart disease of native coronary artery without angina pectoris
CPT/HCPCS: 36415; 80053; 80061; 84443; 85025

== ENCOUNTER → 2025-03-07 12:07 | Outpatient (CLI) | payer MEDICARE, OTHER, SELFPAY | PROVIDERS: PCP Family Medicine; Referring Provider Family Medicine; Visit Provider Family Medicine | DX: R39.15 Urgency of urination (principal) | CPT/HCPCS: 87086 ==